=== PATIENT | female | born 1965 | race Two or more races ===

== ENCOUNTER → 2024-09-28 | Outpatient (CLI) | payer BC, SELFPAY ==
[2024-09-28 12:02] LABS: Basophils % (Auto) 1 % (0-2.5); Eosinophils # (Auto) 0.1 Thou/mm3 (0.0-0.5); Eosinophils % (Auto) 2 % (0-10); Hematocrit 37.8 % (36.0-46.0); Hemoglobin 12.7 g/dL (12.0-16.0); Immature Granulocytes % (Auto) 0 % (0-0); Immature Granulocytes Auto 0.02 Thou/mm3 (0.00-0.00); Lymphocytes % (Auto) 41 % (10-50); Mean Corpuscular HGB Conc 33.6 g/dl (31.0-37.0); Mean Corpuscular Hemoglobin 28.6 pg (25.0-35.0); Mean Corpuscular Volume 85 fL (80-100); Monocytes # (Auto) 0.3 Thou/mm3 (0.0-0.8); Monocytes % (Auto) 6 % (0-12); Neutrophils # (Auto) 2.5 Thou/mm3 (1.8-7.7); Neutrophils % (Auto) 50 % (37-80); Nucleated Red Blood Cell % 0 /100 WBC (0); Platelet Count 293 Thou/mm3 (140-440); RDW Standard Deviation 42.7 fL (36.4-46.3); Red Blood Count 4.44 Miln/mm3 (4.00-5.20)
[2024-09-28 12:13] LABS: Glucose Estimated Average 123 mg/dL (80-131); Hemoglobin A1C 5.9 % Hgb (4.8-6.0)
[2024-09-28 12:25] LABS: Vitamin B12 1082 pg/mL (211-911); Vitamin D 25 Hydroxy Total 40.5 ng/mL (7.3-40.2)
[2024-09-28 12:31] LABS: Alanine Aminotransferase 27 U/L (10-49); Albumin, Serum 4.7 gm/dL (3.5-5.0); Albumin/Globulin Ratio 1.9 (1.2-2.2); Alkaline Phosphatase 87 U/L (46-116); Anion Gap 7 (7-16); Aspartate Amino Transferase 19 U/L (0-34); BUN/Creatinine Ratio 21 Ratio (12-20); Bilirubin,Total 0.5 mg/dL (0.3-1.2); Blood Urea Nitrogen 17 mg/dL (9-23); Calcium 10.3 mg/dL (8.3-10.6); Calcium (Corrected) 10.3 mg/dL (8.5-10.1); Carbon Dioxide 29.8 mMol/L (20.0-31.0); Cardiac Risk Estimate 3.7 RATIO (3.7-5.6); Chloride 104 mMol/L (98-107); Cholesterol 190 mg/dL (132-200); Creatinine (Component) 0.8 mg/dL (0.6-1.3); Globulin 2.5 gm/dL (2.3-3.5); Glucose 110 mg/dL (74-106); HDL Cholesterol 51 mg/dL (40-60); LDL Cholesterol,Calculated 109 mg/dL (0-130); Osmolality,Calculated 283 (275-295); Potassium 4.8 mMol/L (3.4-5.1); Sodium 141 mMol/L (136-145); Thyroid Stimulating Hormone 1.63 uIU/mL (0.55-4.78); Total Protein 7.2 gm/dL (5.7-8.2); Triglycerides 150 mg/dL (30-150); Uric Acid 5.2 mg/dL (3.1-7.8); eGFR > 60 See Note
[2024-09-28 12:49] LABS: Collection Type, Urine Clean Catch
[2024-09-28 13:43] LABS: Bacteria,Urine 1+; Bilirubin,Urine Negative (Negative); Blood,Urine 3+ (Negative); Color,Urine Yellow (Lt Yel-Yel); Glucose, Urine Negative (Negative); Hyaline Casts,Urine < 1 /hpf (0-1); Ketones,Urine Negative (Negative); Leukocyte Esterase,Urine Positive (Negative); Nitrite,Urine Negative (Negative); PH,Urine 6.5 (5.0-7.0); Protein,Urine 1+ (Neg - Trace); RBC,Urine 199 /hpf (0-3); Specific Gravity,Urine 1.019 (1.001-1.035); Squamous Epithelial Cell,Urine 4 /hpf (0-5); Urobilinogen,Urine Negative mg/dL (0.0-1.0); WBC,Urine 192 /hpf (0-5)
[2024-09-28 14:01] LABS: Clarity,Urine Hazy (Clear/Hazy)
== END | disposition home or self-care (01) ==
LOC: COPL 11:26
PROVIDERS: PCP Internal Medicine; Referring Provider Internal Medicine; Visit Provider Internal Medicine
DX: Z00.00 Encounter for general adult medical examination without abnormal findings (principal); I10 Essential (primary) hypertension; E78.5 Hyperlipidemia, unspecified
CPT/HCPCS: 36415; 80053; 80061; 81001; 82306; 82607; 83036; 84443; 84550; 85025

== ENCOUNTER 2024-12-25 18:54 | Inpatient (IN) | payer BC, SELFPAY ==
[2024-12-25 19:31] VITALS: BP 129/69; PULSE 140; RESP 20; TEMP 40; O2SAT 97; BMI 38.4
--- NOTE | 2024-12-25 19:34 | PC.NURSE ---
sepsis alert called
--- NOTE | 2024-12-25 19:41 | XR_ITS ---
Examination: AP chest single view TECHNIQUE: AP portable upright chest single view Date and time: December 25, 20242032 hours Comparison September 28, 2022 INDICATIONS: Sepsis alert today with chest pain FINDINGS: Normal heart size Lungs are clear The osseous structures are demineralized IMPRESSION: No pneumonia or pulmonary edema
--- NOTE | 2024-12-25 19:41 | XR_ITS ---
Examination: CT abdomen with intravenous contrast CT pelvis with intravenous contrast 2-D coronal reconstructions 2-D sagittal reconstructions Date and time of exam:December 26, 1999 2510 0 1:00 PM INDICATIONS: Abdominal pain nausea vomiting diarrhea beginning 2 weeks ago with back pain. CTDI: vol (mGy) 14 DLP: (mGycm) 700 Technique: Multiple axial sections of the abdomen and pelvis have been obtained. 64 slice high-resolution scanner used. 3 mm axial sections have been obtained, post intravenous injection 60 cc [id number] 2-D sagittal, coronal reconstructions obtained. Low dose protocols were performed. One or more of the following dose reduction techniques were used; automated exposure control, adjustment of the mA and/or KV according to patient size, use of iterative reconstruction technique. Findings: No focal liver or splenic lesions Absent gallbladder No pancreatic or adrenal mass 1 to 2 mm bilateral renal calculi Mild wall thickening left ureter Aorta normal size No bowel obstruction Normal appendix No diverticulitis No bladder mass IMPRESSION: Tiny bilateral nonobstructing renal calculi Left pyelonephritis
--- NOTE | 2024-12-25 19:42 | EKG_ITS ---
[facility] Test Date: 2024-12-25 Pat Name: MADELINE ANDINO Department: Room: - Gender: Female [employer]: : 1965 Requested By: Rajat Rojas Order Number: [id number] Reading MD: Rajat Rojas Measurements Intervals [place] Rate: 123 P: 48 OH: 131 QRS: -16 QRSD: 100 T: 42 QT: 317 QTc: 454 Interpretive Statements SINUS TACHYCARDIA ABNORMAL RHYTHM ECG Compared to ECG 09/03/2022 17:54:08 Left-axis deviation no longer present Incomplete right bundle-branch block no longer present /store/S0/[id number].pdf
--- NOTE | 2024-12-25 19:55 | PD.EDNV ---
Nausea/Vomit./Diarrhea-RME/HPI General Chief complaint: Nausea/Vomiting/Diarrhea Stated complaint: abd. pain n/v/d, fever x2 wks, worse today Time Seen by Provider: 12/25/24 19:41 Arrival date/time: 12/25/24 18:54 59F with history of hysterectomy, cholecystectomy, HTN, HLD, and kidney stones presents to ED with 2 weeks of non-bloody diarrhea, N/V, and back/ab pain, and fevers/chills. Patient was seen at [facility] yesterday and diagnosed with UTI and discharged with Keflex. Patient states diarrhea has stopped, but there is still a lot of N/V. Limitations: no limitations Related Data Home Medications ?Medication ?Instructions ?Recorded ?Confirmed amlodipine 5 mg-benazepril 20 mg 1 cap PO DAILY 07/30/22 09/27/22 capsule baclofen 10 mg tablet 10 mg PO PRN PRN Pain 07/30/22 09/27/22 simvastatin 20 mg tablet 20 mg PO HS 07/30/22 09/27/22 omeprazole 40 mg capsule,delayed 40 mg PO QDAY 09/02/22 09/27/22 release Previous Rx's ?Medication ?Instructions ?Recorded ibuprofen 600 mg tablet 600 mg PO Q8H PRN pain #14 tabs 09/27/22 ondansetron 4 mg disintegrating 4 mg PO Q8H PRN nausea and 09/27/22 tablet vomiting #10 tabs Allergies Allergy/AdvReac Type Severity Reaction Status Date / Time hydrocodone Allergy Unknown DIFFICULTY Verified 12/25/24 19:00 BREATHING codeine Allergy Shortness Verified 12/25/24 19:00 of breath tamsulosin Allergy Shortness Verified 12/25/24 19:00 of breath Review of Systems Review of Systems Systems Reviewed: All systems reviewed, normal except as documented Constitutional Constitutional: Reports system reviewed and no additional complaints, except as documented, Denies fever(s) and Denies headache(s) ENT Ears, Nose, Mouth, and Throat: Denies disequilibrium and Denies headache(s) Cardiovascular Cardiovascular: Reports system reviewed and no additional complaints, except as documented, Denies chest pain and Denies dyspnea Respiratory Respiratory: Reports system reviewed and no additional complaints, except as documented, Denies cough and Denies dyspnea Gastrointestinal Gastrointestinal: Reports system reviewed and no additional complaints, except as documented, Reports as per HPI, Reports abdominal pain, Reports diarrhea, Reports nausea and Reports vomiting Musculoskeletal Musculoskeletal: Reports as per HPI and Reports back pain Neurologic Neurologic: Reports system reviewed and no additional complaints, except as documented, Denies confusion, Denies disequilibrium and Denies headache(s) Psychiatric Psychiatric: Denies confusion Past Medical History Past Medical History NEUROLOGIC: Negative Neurological Disorders or Seizures CARDIAC: Positive Cardiac Disorders (htn), Hypercholesterolemia and Hypertension; Negative Congestive Heart Failure RESPIRATORY: Negative Chronic Obstructive Pulmonary Disease (COPD) or Asthma GASTROINTESTINAL: Negative Gastrointestinal Disorders GENITOURINARY: Positive Genitourinary Disorders and Kidney Stones; Negative Renal Disease REPRODUCTIVE: Positive Previous Pregnancies; Negative Endometriosis or Pelvic Inflammatory Disease MUSCULOSKELETAL: Positive Musculoskeletal Disorders ENDOCRINE: Negative Endocrine Disorders, Diabetes Mellitus Type 1 or Diabetes Mellitus Type 2 HEMATOLOGIC: Negative Blood Disorders or Sickle Cell Disease OTHER HISTORY: Positive Hospitalization and Chicken Pox; Negative Blood Transfusions, Blood Transfusion Reaction, Anesthesia Reactions, Measles, Mumps or Cancer Family History FAMILY HISTORY: Positive Family Cardiac Disorders and Family Cancer; Negative Family Psychiatric Problems, Family Respiratory Disorders, Family Gastrointestinal Problems or Family Surgery Surgical History SURGICAL: Positive Hysterectomy; Negative Cardiac Surgery Social History SMOKING STATUS: Former smoker SECOND HAND EXPOSURE: No SUBSTANCE USE: does not use ED Exam General Limitations: Present no limitations General appearance: Present alert and in no apparent distress Head Head exam: Present atraumatic Eye Eye exam: Present normal appearance, PERRL and EOMI ENT ENT exam: Present normal exam, normal oropharynx and mucous membranes moist Neck Neck exam: Present normal inspection, full ROM and trachea midline Chest Chest inspection: Present normal inspection and symmetric chest wall rise Respiratory Respiratory exam: Present normal lung sounds bilaterally Cardiovascular Cardiovascular exam: Present regular rate, normal rhythm and normal heart sounds Abdominal Exam Abdominal exam: Present soft and normal bowel sounds Extremities Exam Extremities exam: Present normal inspection and full ROM Back Exam Back exam: Present full ROM and tenderness Neurological Exam Neurological exam: Present alert, oriented X3 and CN II-XII intact Psychiatric Psychiatric exam: Present normal affect and normal mood Skin Skin exam: Present warm, dry, intact and normal color Course Quality Measures none Orders Category Date Time Status Bedside COVID-19 Antigen Test NOW Care 12/25/24 19:08 Active Bedside Influenza A&B Antigen Test NOW Care 12/25/24 19:[address] Screening NOW Care 12/25/24 19:44 Active EKG (ED ONLY) *Do not use* NOW Care 12/25/24 19:42 Completed Insert IV NOW Care 12/25/24 19:[address] abdomen pelvis w con Stat Exams 12/25/24 19:41 Completed EKG (ED Only) Stat Exams 12/25/24 19:42 Draft XR chest 1V portable Stat Exams 12/25/24 19:41 Completed Blood Culture (Lab) Stat Lab 12/25/24 20:16 Received CBC Stat Lab 12/25/24 20:13 Completed Comprehensive Metabolic Panel Stat Lab 12/25/24 20:13 Completed Drug Screen,Urine Stat Lab 12/25/24 19:59 Completed Lactate (Lactic Acid) Stat Lab 12/25/24 20:00 Completed Lipase Stat Lab 12/25/24 20:13 Completed Magnesium Stat Lab 12/25/24 20:13 Completed Partial Thromboplastin Time Stat Lab 12/25/24 21:51 Completed Procalcitonin Stat Lab 12/25/24 20:13 Completed Prothrombin Time with INR Stat Lab 12/25/24 21:51 Completed Troponin I Stat Lab 12/25/24 20:13 Completed Urinalysis Stat Lab 12/25/24 19:59 Completed Urine Culture Stat Lab 12/25/24 19:59 Received Acetaminophen Tab [Tylenol ES Tab] Med 12/25/24 19:47 Discontinued 1,000 mg PO X1 ONE Ondansetron Inj [Zofran Inj] Med 12/25/24 19:41 Discontinued 4 mg IV X1 ONE Sodium Chloride 0.9% 1000 ml [Ns] 1,503 ml Med 12/25/24 19:41 Discontinued IV 1,503 mls/hr cefTRIAXone/D5w 1gm IV premix [Rocephin/D5w 1gm IV Med 12/25/24 19:44 Discontinued premix] 1 gm in 50 ml IV X1 fentaNYL INJ [Sublimaze Inj] Med 12/25/24 20:33 Discontinued 50 mcg IVP X1 ONE Vital Signs Vital signs: Vital Signs Temperature 104 F H 12/25/24 19:31 Pulse Rate 140 H 12/25/24 19:31 Respiratory Rate 20 12/25/24 19:31 Blood Pressure 129/69 12/25/24 19:31 Pulse Oximetry (%) 97 12/25/24 19:31 Oxygen Delivery Method Room Air 12/25/24 19:31 O2 at 97% on RA and WNLs Nausea/Vomiting/Diarrhea MDM Narrative MDM Narrative:: 59F with history of hysterectomy, cholecystectomy, HTN, HLD, and kidney stones presents to ED with 2 weeks of non-bloody diarrhea, N/V, and back/ab pain, and fevers/chills. Patient was seen at [facility] yesterday and diagnosed with UTI and discharged with Keflex. Patient states diarrhea has stopped, but there is still a lot of N/V. Physical exam reveals no ab tenderness. Some CVA tenderness. Patient is febrile and having some N/V. Sepsis alert called. CT L pyelo, which is supported with UA. No leukocytosis. CMP unremarkable. Lipase normal. Coags normal. EKG is sinus tach of 123. Normal trop and CXR. Normal procal. Minimal lactate elevation of 2.1. Upon reassessment, patient is feeling much better. Spoke to Dr. Vargas, who will admit patient. Patient data External records reviewed:: [facility] previous records Clinical information provided by:: patient Social determinants that could affect healthcare access:: none Patient has the following chronic illnesses:: hysterectomy, cholecystectomy, HTN, HLD, and kidney stones How is presenting disease/condition affected by chronic disease/condition?: exacerbated by Evaluation data The following diagnostics were reviewed and interpreted by me:: lab results, radiology exam(s) and EKG tracing(s) Lab and/or radiology exams considered but not ordered:: ordered Interpretation Summary: above Medications / Prescriptions Medications / Prescriptions considered but not ordered:: ordered Medication administrations:: Medication Administration History Acetaminophen (Acetaminophen 325 Mg Tablet) 650 mg PO Q6H PRN PRN Reason: Pain Stop: 01/24/25 22:53 Sodium Chloride (Ns 0.45%) 1,000 mls @ 120 mls/hr IV .Q8H20M [facility] Stop: 01/24/25 22:51 Last Admin: 12/25/24 23:30 Dose: 120 mls/hr Documented By: DT Piperacillin/Tazobactam/Dextrose (Zosyn) 3.375 gm in 50 mls @ 100 mls/hr IV Q6HR JULIANA Stop: 01/02/25 00:00 Piperacillin/Tazobactam/Dextrose (Zosyn) 3.375 gm in 50 mls @ 100 mls/hr IV X1 ONE Stop: 12/26/24 00:14 Last Admin: 12/25/24 23:54 Dose: 100 mls/hr Documented By: DT Discontinued Medications Acetaminophen (Acetaminophen 500 Mg Tablet) 1,000 mg PO X1 ONE Stop: 12/25/24 19:48 Last Admin: 12/25/24 20:24 Dose: 1,000 mg Documented By: DT Fentanyl Citrate (Fentanyl Cit Inj 50 Mcg/Ml Amp 2ml) 50 mcg IVP X1 ONE Stop: 12/25/24 20:34 Last Admin: 12/25/24 20:52 Dose: 50 mcg Documented By: DT Sodium Chloride (Ns) 1,503 mls @ 1,503 mls/hr 30 ml/kg infuse over 60 min (1503 ml) IV .Q1H ONE Stop: 12/25/24 20:40 Last Infusion: 12/25/24 21:40 Dose: Infused Documented By: Admin: 12/25/24 20:17 Dose: 1,503 mls/hr Documented By: DT Ceftriaxone Sodium/Dextrose (Rocephin/D5w 1gm Iv Premix) 1 gm in 50 mls @ 100 mls/hr IV X1 ONE Stop: 12/25/24 20:13 Last Infusion: 12/25/24 21:01 Dose: Infused Documented By: Admin: 12/25/24 20:20 Dose: 100 mls/hr Documented By: DT Piperacillin/Tazobactam/Dextrose (Zosyn) 3.375 gm in 50 mls @ 12.5 mls/hr IV X1 ONE Stop: 12/26/24 03:14 Last Admin: 12/25/24 23:52 Dose: Not Given Documented By: DT Non-Admin Reason: Duplicate Medication on eMAR Ondansetron HCl (Ondansetron Inj 2 Mg/Ml Inj 2 Ml) 4 mg IV X1 ONE; Protocol Stop: 12/25/24 19:42 Last Admin: 12/25/24 20:18 Dose: 4 mg Documented By: DT above Consultations Consultation(s) initiated? (list below): Yes Diagnosis Nausea Differential Diagnosis: traveler's diarrhea, food poisoning, gastroenteritis, clostridium difficile infection, drug-induced nausea and vomiting, dehydration and other (UTI/pyelo) Most likely diagnosis given after review of the tests above:: pyelo Admission Indicated Admission indicated?: indicated Admission Request Was there a request for admission?: Yes Admission Attestation Admission request attestation: Discussed case with [Dr. Vargas] from Hospitalist service regarding admission. Discussed patients ED course, exam findings, labs, and radiology results. The Hospitalist [agrees] to accept the patient for admission. Disposition Plan Disposition Plan: Admit Discharge Plan Plan Patient Disposition: Admit Acute Care w/in Hospital Problem List Clinical Impression: Acute pyelonephritis
[2024-12-25 20:08] LABS: Collection Type, Urine Clean Catch
[2024-12-25 20:14] LABS: Lactate (Lactic Acid) 2.1 mMol/L (0.4-2.0)
[2024-12-25] MEDS: SODIUM CHLORIDE 0.9% 1000 ML 1,503 ML 1503 ML IV (20:17)
[2024-12-25] MEDS: ONDANSETRON INJ 2 MG/ML INJ 2 ML 4 MG IV (20:18)
[2024-12-25] MEDS: cefTRIAXone/D5w 1gm IV premix 1 GM/50 ML BAG IV (20:20)
[2024-12-25 20:24] VITALS: TEMP 39.2
[2024-12-25] MEDS: ACETAMINOPHEN 500 MG TABLET 1000 MG PO (20:24)
[2024-12-25 20:30] LABS: Bilirubin,Urine Negative (Negative); Blood,Urine 2+ (Negative); Clarity,Urine Turbid (Clear/Hazy); Color,Urine Yellow (Lt Yel-Yel); Glucose, Urine Negative (Negative); Ketones,Urine Negative (Negative); Leukocyte Esterase,Urine Positive (Negative); Nitrite,Urine Negative (Negative); Protein,Urine 2+ (Neg - Trace); RBC,Urine 38 /hpf (0-3); Specific Gravity,Urine 1.018 (1.001-1.035); Squamous Epithelial Cell,Urine 5 /hpf (0-5); Urobilinogen,Urine Negative mg/dL (0.0-1.0); WBC,Urine 399 /hpf (0-5)
[2024-12-25 20:49] LABS: Basophils % (Auto) 0 % (0-2.5); Eosinophils # (Auto) 0.1 Thou/mm3 (0.0-0.5); Eosinophils % (Auto) 1 % (0-10); Hematocrit 34.8 % (36.0-46.0); Immature Granulocytes % (Auto) 1 % (0-0); Immature Granulocytes Auto 0.05 Thou/mm3 (0.00-0.00); Lymphocytes # (Auto) 0.9 Thou/mm3 (1.0-4.8); Lymphocytes % (Auto) 8 % (10-50); Mean Corpuscular HGB Conc 34.5 g/dl (31.0-37.0); Mean Corpuscular Hemoglobin 29.9 pg (25.0-35.0); Mean Corpuscular Volume 87 fL (80-100); Monocytes # (Auto) 0.9 Thou/mm3 (0.0-0.8); Monocytes % (Auto) 8 % (0-12); Neutrophils # (Auto) 9.1 Thou/mm3 (1.8-7.7); Neutrophils % (Auto) 82 % (37-80); Nucleated Red Blood Cell % 0 /100 WBC (0); Platelet Count 289 Thou/mm3 (140-440); RDW Standard Deviation 44.7 fL (36.4-46.3); Red Blood Count 4.02 Miln/mm3 (4.00-5.20)
[2024-12-25] MEDS: fentaNYL CIT INJ 50 mCg/ML AMP 2ML IVP (20:52)
[2024-12-25 21:00] VITALS: BP 135/64; PULSE 110; RESP 20; O2SAT 95
[2024-12-25 21:32] LABS: Alanine Aminotransferase 28 U/L (10-49); Albumin, Serum 4.6 gm/dL (3.5-5.0); Albumin/Globulin Ratio 1.6 (1.2-2.2); Alkaline Phosphatase 92 U/L (46-116); Anion Gap 13 (7-16); Aspartate Amino Transferase 28 U/L (0-34); BUN/Creatinine Ratio 15 Ratio (12-20); Bilirubin,Total 0.4 mg/dL (0.3-1.2); Blood Urea Nitrogen 12 mg/dL (9-23); Calcium 9.2 mg/dL (8.3-10.6); Calcium (Corrected) 9.2 mg/dL (8.5-10.1); Carbon Dioxide 24.7 mMol/L (20.0-31.0); Chloride 102 mMol/L (98-107); Creatinine (Component) 0.8 mg/dL (0.6-1.3); Estimated Creatinine Clearance 83.5 mL/min (>60); Globulin 2.8 gm/dL (2.3-3.5); Glucose 189 mg/dL (74-106); Lipase 40 U/L (12-53); Magnesium 1.6 mg/dL (1.6-2.6); Osmolality,Calculated 284 (275-295); Potassium 3.5 mMol/L (3.4-5.1); Procalcitonin 0.29 ng/ml (0.0-0.49); Sodium 140 mMol/L (136-145); Total Protein 7.4 gm/dL (5.7-8.2); Troponin I 0.022 ng/mL (0.0-0.045); eGFR > 60 See Note
[2024-12-25 21:36] VITALS: TEMP 37.1
[2024-12-25 22:14] LABS: INR 1.1 (0.9-1.3); Partial Thromboplastin Time 29.3 Seconds (22.0-36.0); Prothrombin Time 11.8 Seconds (9.0-12.2)
[2024-12-25 22:23] LABS: Amphetamine/Methamp Scrn,U Negative (Negative); Barbiturate Screen,Urine Negative (Negative); Benzodiazepines Screen,Urine Negative (Negative); Benzoylecgonine Screen, Ur Negative (Negative); Fentanyl Screen,Urine Negative (Negative); Opiate Screen,Urine Negative (Negative); THC Screen,Urine Negative (Negative)
[2024-12-25 22:43] VITALS: BP 134/71; PULSE 96; RESP 19; TEMP 37.3; O2SAT 96
[2024-12-25 23:03] LABS: Reflex Lactate? Y
[2024-12-25 23:28] LABS: Lactic Acid, 3 HR 0.7 mMol/L (0.4-2.0)
[2024-12-25] MEDS: SODIUM CHLORIDE 0.45 % 1,000 ML 120 ML IV (23:30)
[2024-12-25] MEDS: PIPER/TAZO 3.375 GM PREMIX 3.375 GM/50 ML BAG IV (23:54)
[2024-12-26] VITALS (11 sets, daily range): BP systolic 107–145; BP diastolic 60–81; PULSE 70–90; RESP 15–21; TEMP 36.2–38.6; O2SAT 92–99; BMI 38.4
[2024-12-26] MEDS: KETOROLAC INJ 30 MG/ML VIAL IVP (01:38)
[2024-12-26] MEDS: PIPER/TAZO 3.375 GM PREMIX 3.375 GM/50 ML BAG IV ×3 (05:22→17:37)
[2024-12-26] MEDS: ACETAMINOPHEN 325 MG TABLET 650 MG PO ×3 (05:25→20:17)
[2024-12-26] MEDS: SODIUM CHLORIDE 0.45 % 1,000 ML 120 ML IV ×2 (07:13→16:43)
--- NOTE | 2024-12-26 09:40 | PD.RESHP ---
Documentation for date of: 12/26/24 HPI History of Present Illness Chief complaint: Fever, dysuria History of present illness: 59 y/o F with history of HTN, HLD, and kidney stones presents to ED with 2 weeks of non-bloody diarrhea, N/V, and back/abd pain, and fevers/chills. Patient was diagnosed with UTI start Keflex yesterday, but symptoms remain prompting ED visit. Patient reports diarrhea has resolved, however nausea and vomiting, dysuria, fever and chills are present. Patient denies chest pain or shortness of breath. ED COURSE: Labs significant for: Lactic acid 2.1 down to 0.7. Pro-Chidi negative. Urinalysis showed 40 WBC, 38 RBC, 2+ protein, no bacteria. Imaging significant for: CT abdomen/pelvis showing left-sided pyelonephritis. Patient started on Zosyn. Given 2.5 L IV bolus. Patient seen and examined at bedside, resting comfortably. Patient reports significant improvement in symptoms with IV Zosyn. Continue IV antibiotics, probable discharge tomorrow. Review of Systems Review of Systems Systems Reviewed: All systems reviewed, normal except as documented Exam Vital Signs Temp Pulse Resp BP Pulse Ox O2 Del Method 97.1 F 70 16 112/65 97 Room Air 12/26/24 08:00 12/26/24 08:00 12/26/24 08:00 12/26/24 08:00 12/26/24 08:00 12/26/24 08:00 Narrative Exam PE: Gen: Well-developed and well-nourished. HEENT: NCAT, PERRLA, EOMI, MMM, anicteric conjunctivae. CVS: normal S1 and S2. RRR. No M/R/G. Resp: CTA B/L. No rhonchi, rales, crackles or wheezing. Abd: soft, non-tender, non-distended. MSK: Good ROM in BUE & BLE. No edema or rash. Neuro: CN II-XII grossly intact. Strength 5/5 in BUE & BLE. Alert and oriented x3. Psych: appropriate mood and affect. Results: Labs 12/25/24 20:13 12/25/24 20:13 Labs: Short CBC 12/25/24 Range/Units 20:13 WBC 11.0 (3.6-11.0) Thou/mm3 Hgb 12.0 (12.0-16.0) g/dL Hct 34.8 L (36.0-46.0) % Plt Count 289 (140-440) Thou/mm3 BMP 12/25/24 20:13 Sodium 140 Potassium 3.5 Chloride 102 Carbon Dioxide 24.7 BUN 12 Creatinine 0.8 Glucose 189 H Calcium 9.2 Cardiac Enzymes 12/25/24 Range/Units 20:13 Troponin I 0.022 (0.0-0.045) ng/mL Liver Function 12/25/24 Range/Units 20:13 Total Bilirubin 0.4 (0.3-1.2) mg/dL AST 28 (0-34) U/L ALT 28 (10-49) U/L Alkaline Phosphatase 92 (46-116) U/L Albumin 4.6 (3.5-5.0) gm/dL Urine 12/25/24 Range/Units 19:59 Urine Color Yellow (Lt Yel-Yel) Urine Clarity Turbid A (Clear/Hazy) Urine pH 6.0 (5.0-7.0) Ur Specific [place] 1.018 (1.001-1.035) Urine Protein 2+ A (Neg - Trace) Urine Glucose (UA) Negative (Negative) Quality Measures Quality Measures VTE prophylaxis Medications Home Medications and Allergies Home Medications ?Medication ?Instructions ?Recorded ?Confirmed ?Type amlodipine 5 mg-benazepril 20 mg 1 cap PO DAILY 07/30/22 12/26/24 History capsule baclofen 10 mg tablet 10 mg PO PRN PRN Pain 07/30/22 12/26/24 History simvastatin 20 mg tablet 20 mg PO HS 07/30/22 12/26/24 History omeprazole 40 mg capsule,delayed 40 mg PO QDAY 09/02/22 12/26/24 History release Allergies Allergy/AdvReac Type Severity Reaction Status Date / Time hydrocodone Allergy Unknown DIFFICULTY Verified 12/25/24 19:00 BREATHING codeine Allergy Shortness Verified 12/25/24 19:00 of breath tamsulosin Allergy Shortness Verified 12/25/24 19:00 of breath Visit Medications Acetaminophen (Acetaminophen 325 Mg Tablet) 650 mg PO Q6H PRN PRN Reason: Pain Stop: 01/24/25 22:53 Last Admin: 12/26/24 05:25 Dose: 650 mg Sodium Chloride (Ns 0.45%) 1,000 mls @ 120 mls/hr IV .Q8H20M JULIANA Stop: 01/24/25 22:51 Last Admin: 12/26/24 07:13 Dose: 120 mls/hr Piperacillin/Tazobactam/Dextrose (Zosyn) 3.375 gm in 50 mls @ 12.5 mls/hr IV Q6HR JULIANA Stop: 01/02/25 05:59 Last Admin: 12/26/24 05:22 Dose: 12.5 mls/hr Discontinued Medications Acetaminophen (Acetaminophen 500 Mg Tablet) 1,000 mg PO X1 ONE Stop: 12/25/24 19:48 Last Admin: 12/25/24 20:24 Dose: 1,000 mg Fentanyl Citrate (Fentanyl Cit Inj 50 Mcg/Ml Amp 2ml) 50 mcg IVP X1 ONE Stop: 12/25/24 20:34 Last Admin: 12/25/24 20:52 Dose: 50 mcg Sodium Chloride (Ns) 1,503 mls @ 1,503 mls/hr 30 ml/kg infuse over 60 min (1503 ml) IV .Q1H ONE Stop: 12/25/24 20:40 Last Infusion: 12/25/24 21:40 Dose: Infused Ceftriaxone Sodium/Dextrose (Rocephin/D5w 1gm Iv Premix) 1 gm in 50 mls @ 100 mls/hr IV X1 ONE Stop: 12/25/24 20:13 Last Infusion: 12/25/24 21:01 Dose: Infused Piperacillin/Tazobactam/Dextrose (Zosyn) 3.375 gm in 50 mls @ 12.5 mls/hr IV X1 ONE Stop: 12/26/24 03:14 Last Admin: 12/25/24 23:52 Dose: Not Given Piperacillin/Tazobactam/Dextrose (Zosyn) 3.375 gm in 50 mls @ 100 mls/hr IV X1 ONE Stop: 12/26/24 00:14 Last Infusion: 12/26/24 00:31 Dose: Infused Ketorolac Tromethamine (Ketorolac Inj 30 Mg/Ml Vial) 30 mg IVP X1 ONE Stop: 12/26/24 01:31 Last Admin: 12/26/24 01:38 Dose: 30 mg Ondansetron HCl (Ondansetron Inj 2 Mg/Ml Inj 2 Ml) 4 mg IV X1 ONE; Protocol Stop: 12/25/24 19:42 Last Admin: 12/25/24 20:18 Dose: 4 mg Assessment & Plan Plan 59 y/o F with history of HTN, HLD, and kidney stones presents to ED with 2 weeks of non-bloody diarrhea, N/V, and back/abd pain, and fevers/chills, negative for pyelonephritis. #Pyelonephritis Patient presented with complaint of fever, chills, nausea, vomiting, CVA tenderness noted on initial exam. Plan nephritis confirmed with CT imaging. Patient started on Zosyn, received 2.5 L bolus in the ED. Patient with significant symptomatic improvement since admission. Lactic acid 2.1 down to 0.7, Pro-Chidi negative, WBC 11. Afebrile. - Zosyn 3.375 g IV every 6 hours - Normal saline 120 mL/h - Blood and urine cultures pending, follow-up #HTN #HLD Patient has history as stated. - Resume home medication: Amlodipine?benazepril DVT prophylaxis: Heparin GI prophylaxis: None Diet: Regular Lines: Peripheral IV Code status: Full code Plan of care discussed with attending Dr. Vargas. José Miguel Reynoso MD PGY?1 Attending Provider Attestation/Addendum Patient seen and examined with resident physician Dr. Hernandez. Note reviewed, agree with findings and recommendations. Patient currently seen in medical floor. Daughter Carolina at bedside. Admitted with complicated UTI/left pyelonephritis. Having chills. Continue with broad-spectrum antibiotics, fluids. Complaining of bodyaches-morphine given. Patient allergic to [place], codeine.
--- NOTE | 2024-12-26 10:51 | PC.SS ---
Follow up note: Pt is receiving IV hydration and IV antibiotic. Pt will return home upon dc.
--- NOTE | 2024-12-26 11:43 | PC.SS ---
SS met with patient regarding her d/c plan. Pt is alert/oriented. Pt was admitted for Fever/TAchycardia R.O Sepsis Secondary to UTI. Pt confirmed demographic and contact information is correct on facesheet. Pt resides with and dtr. Pt ambulates independently without assistance or DME. Pt is ok with all ADLs. 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 Patient?s pharmacy of choice is [facility] [address]. Pt named her her dtr, Carolina Melgar medical decision maker if she is unable. Patient?s choice is to return home upon d/c. Pt does not have an advance directive, SS offered, and pt was receptive. Pt states she is not diabetic and is not on dialysis. Pt states she had phone visit with PCP Tuesday. Pt states her daugter will provide transportation home. D/C plan: Return home Next of Kin: Carolina Rajinder Melgar, daughter, phone# [phone] PCP: Dr. Vargas Address: Correct on facesheet
[2024-12-26] MEDS: ONDANSETRON INJ 2 MG/ML INJ 2 ML 4 MG IV (16:16)
[2024-12-26] MEDS: MORPHINE SULF INJ 10 MG/ML VIAL IVP ×2 (16:17→21:31)
[2024-12-26] MEDS: IBUPROFEN TAB 200 MG TABLET 500 MG PO (16:36)
[2024-12-26] MEDS: DOCUSATE SOD 100 MG CAPSULE PO (17:37)
[2024-12-26] MEDS: AMLODIPINE-BENAZEPRIL 5-20 MG PO (17:37)
[2024-12-26] MEDS: HEPARIN SOD INJ 5000 UNIT/ML VIAL SC (20:22)
[2024-12-27] VITALS (11 sets, daily range): BP systolic 107–142; BP diastolic 61–87; PULSE 65–95; RESP 15–20; TEMP 36.3–38.6; O2SAT 93–97; BMI 39.0
[2024-12-27] MEDS: PIPER/TAZO 3.375 GM PREMIX 3.375 GM/50 ML BAG IV ×4 (00:08→17:24)
[2024-12-27] MEDS: SODIUM CHLORIDE 0.45 % 1,000 ML 120 ML IV ×3 (00:17→22:20)
[2024-12-27] MEDS: ACETAMINOPHEN 325 MG TABLET 650 MG PO ×4 (02:25→22:38)
[2024-12-27] MEDS: ONDANSETRON INJ 2 MG/ML INJ 2 ML 4 MG IV ×3 (02:25→17:05)
[2024-12-27] MEDS: MORPHINE SULF INJ 10 MG/ML VIAL IVP ×3 (03:39→17:23)
[2024-12-27 05:53] LABS: Basophils % (Auto) 1 % (0-2.5); Eosinophils # (Auto) 0.1 Thou/mm3 (0.0-0.5); Eosinophils % (Auto) 1 % (0-10); Hematocrit 33.1 % (36.0-46.0); Hemoglobin 10.8 g/dL (12.0-16.0); Immature Granulocytes % (Auto) 0 % (0-0); Immature Granulocytes Auto 0.02 Thou/mm3 (0.00-0.00); Lymphocytes # (Auto) 1.2 Thou/mm3 (1.0-4.8); Lymphocytes % (Auto) 23 % (10-50); Mean Corpuscular HGB Conc 32.6 g/dl (31.0-37.0); Mean Corpuscular Hemoglobin 28.3 pg (25.0-35.0); Mean Corpuscular Volume 87 fL (80-100); Monocytes # (Auto) 0.7 Thou/mm3 (0.0-0.8); Monocytes % (Auto) 12 % (0-12); Neutrophils # (Auto) 3.3 Thou/mm3 (1.8-7.7); Neutrophils % (Auto) 62 % (37-80); Nucleated Red Blood Cell % 0 /100 WBC (0); Platelet Count 210 Thou/mm3 (140-440); Red Blood Count 3.81 Miln/mm3 (4.00-5.20); White Blood Count 5.3 Thou/mm3 (3.6-11.0)
[2024-12-27 06:26] LABS: Alanine Aminotransferase 42 U/L (10-49); Albumin, Serum 4.1 gm/dL (3.5-5.0); Albumin/Globulin Ratio 1.6 (1.2-2.2); Alkaline Phosphatase 85 U/L (46-116); Anion Gap 12 (7-16); Aspartate Amino Transferase 42 U/L (0-34); BUN/Creatinine Ratio 10 Ratio (12-20); Bilirubin,Total 0.5 mg/dL (0.3-1.2); Blood Urea Nitrogen 6 mg/dL (9-23); Calcium 8.8 mg/dL (8.3-10.6); Calcium (Corrected) 8.8 mg/dL (8.5-10.1); Carbon Dioxide 25.1 mMol/L (20.0-31.0); Chloride 103 mMol/L (98-107); Creatinine (Component) 0.6 mg/dL (0.6-1.3); Globulin 2.5 gm/dL (2.3-3.5); Glucose 106 mg/dL (74-106); Magnesium 1.7 mg/dL (1.6-2.6); Osmolality,Calculated 277 (275-295); Phosphorous 2.8 mg/dL (2.4-5.1); Potassium 3.4 mMol/L (3.4-5.1); Sodium 140 mMol/L (136-145); Total Protein 6.6 gm/dL (5.7-8.2); eGFR > 60 See Note
[2024-12-27] MEDS: AMLODIPINE-BENAZEPRIL 5-20 MG PO (08:02)
[2024-12-27] MEDS: HEPARIN SOD INJ 5000 UNIT/ML VIAL SC ×2 (08:02→22:11)
[2024-12-27] MEDS: MAGNESIUM CITRATE 300 ML BTL PO (09:30)
[2024-12-27] MEDS: SUMAtriptan 25 MG TABLET PO (09:30)
[2024-12-27] MEDS: CYCLObenzaPRINE 5 MG TABLET PO ×2 (09:39→22:12)
[2024-12-27] MEDS: POTASSIUM CHLORIDE 20 mEq TABCR 40 MEQ PO (09:41)
--- NOTE | 2024-12-27 09:46 | ESPR_ITS ---
Documentation for date of: 12/27/24 Subjective Subjective Interval history: 59 y/o F with history of HTN, HLD, and kidney stones presents to ED with 2 weeks of non-bloody diarrhea, N/V, and back/abd pain, and fevers/chills. Patient was diagnosed with UTI start Keflex yesterday, but symptoms remain prompting ED visit. Patient reports diarrhea has resolved, however nausea and vomiting, dysuria, fever and chills are present. Patient denies chest pain or shortness of breath. ED COURSE: Labs significant for: Lactic acid 2.1 down to 0.7. Pro-Chidi negative. Urinalysis showed 40 WBC, 38 RBC, 2+ protein, no bacteria. Imaging significant for: CT abdomen/pelvis showing left-sided pyelonephritis. Patient started on Zosyn. Given 2.5 L IV bolus. Patient seen and examined at bedside, resting comfortably. Patient reports significant improvement in symptoms with IV Zosyn. 12/27/2024: Patient seen examined at bedside, notably uncomfortable. Patient complains of fevers overnight and significant headache. Patient is also having difficult bowel movements despite stool softeners. WBC 5.3, hemoglobin 10.8, sodium 140, potassium 3.4, bicarb 25.1, BUN 6, creatinine 0.6, EGFR greater than 60. Albumin decreased from 4.6-4.1. Ordered replacement potassium, started Flexeril for back pain and headaches, give times of magnesium citrate, and x 1 Imitrex. Will continue IV antibiotics. Urine culture positive for gram- negative rods, blood cultures negative x 24 hours. Exam Vital Signs Temp Pulse Resp BP Pulse Ox O2 Del Method 99.7 F 86 18 111/75 93 L Room Air 12/27/24 09:39 12/27/24 08:00 12/27/24 08:00 12/27/24 08:00 12/27/24 08:00 12/27/24 08:00 Narrative Exam PE: Gen: Well-developed and well-nourished. Moderate distress. HEENT: NCAT, PERRLA, EOMI, MMM, anicteric conjunctivae. CVS: normal S1 and S2. RRR. No M/R/G. Resp: CTA B/L. No rhonchi, rales, crackles or wheezing. Abd: soft, non-tender, non-distended. MSK: Good ROM in BUE & BLE. No edema or rash. Neuro: CN II-XII grossly intact. Strength 5/5 in BUE & BLE. Alert and oriented x3. Psych: appropriate mood and affect. Objective Labs 12/29/24 04:44 12/29/24 04:44 Labs: Laboratory Results - last 24 hr 12/27/24 05:09 WBC 5.3 D RBC 3.81 L Hgb 10.8 L Hct 33.1 L MCV 87 MCH 28.3 MCHC 32.6 RDW Std Deviation 45.0 Plt Count 210 D Neut % (Auto) 62 Lymph % (Auto) 23 [place] % (Auto) 12 Eos % (Auto) 1 Baso % (Auto) 1 Neut # (Auto) 3.3 Lymph # (Auto) 1.2 [place] # (Auto) 0.7 Eos # (Auto) 0.1 Baso # (Auto) 0.0 Immature Gran # (Auto) 0.02 H Absolute Nucleated RBC 0.00 Immature Gran % 0 Nucleated RBC % 0 Sodium 140 Potassium 3.4 Chloride 103 Carbon Dioxide 25.1 Anion Gap 12 BUN 6 L Creatinine 0.6 Estim Creat Clear Calc 112.0 eGFR > 60 BUN/Creatinine Ratio 10 L Glucose 106 D Calculated Osmolality 277 Calcium 8.8 Corrected Calcium 8.8 Phosphorus 2.8 Magnesium 1.7 Total Bilirubin 0.5 AST 42 H ALT 42 Alkaline Phosphatase 85 Total Protein 6.6 Albumin 4.1 D Globulin 2.5 Albumin/Globulin Ratio 1.6 Quality Measures Quality Measures VTE prophylaxis Assessment & Plan Assessment Current Active Medications: Generic Name Dose Route Start Last Admin Trade Name Viji PRN Reason Stop Dose Admin Acetaminophen 650 mg 12/25/24 22:54 12/27/24 09:39 Acetaminophen 325 Mg Tablet PO 01/24/25 22:53 650 mg Q6H PRN Administration Pain Amlodipine- 0 ea 12/26/24 16:45 12/27/24 08:02 Benazepril 5-20 Mg PO 01/25/25 16:44 1 capsule QDAY JULIANA Administration Cyclobenzaprine HCl 5 mg 12/27/24 09:00 12/27/24 09:39 Cyclobenzaprine 5 Mg Tablet PO 01/26/25 08:59 5 mg BID JULIANA Administration Docusate Sodium 100 mg 12/26/24 17:25 12/26/24 17:37 Docusate Sod 100 Mg Capsule PO 01/25/25 17:24 100 mg BID PRN Administration CONSTIPATION Protocol Heparin Sodium (Porcine) 5,000 unit 12/26/24 21:00 12/27/24 08:02 Heparin Sod Inj 5000 Unit/Ml Vial SC 01/09/25 20:59 5,000 unit Q12HR JULIANA Administration Piperacillin/Tazobactam/Dextrose 3.375 gm in 50 mls @ 12.5 mls/hr 12/26/24 06:00 12/27/24 05:49 Zosyn IV 01/02/25 05:59 12.5 mls/hr Q6HR JULIANA Administration Morphine Sulfate 1 mg 12/26/24 15:47 12/27/24 07:59 Morphine Sulf Inj 10 Mg/Ml Vial IVP 12/31/24 15:46 1 mg Q4HR PRN Administration PAIN 4-6 Ondansetron HCl 4 mg 12/26/24 16:09 12/27/24 08:02 Ondansetron Inj 2 Mg/Ml Inj 2 Ml IV 01/25/25 16:08 4 mg Q6HR PRN Administration NAUSEA OR VOMITING Protocol Plan 59 y/o F with history of HTN, HLD, and kidney stones presents to ED with 2 weeks of non-bloody diarrhea, N/V, and back/abd pain, and fevers/chills, negative for pyelonephritis. #Pyelonephritis Patient presented with complaint of fever, chills, nausea, vomiting, CVA tenderness noted on initial exam. Plan nephritis confirmed with CT imaging. Patient started on Zosyn, received 2.5 L bolus in the ED. Patient with significant symptomatic improvement since admission. Lactic acid 2.1 down to 0.7, Pro-Chidi negative, WBC 11. Patient complaining of fevers overnight along with chills, body aches, headaches. Morphine was given for body aches, some improvement. Urine culture positive for gram-negative rods, pending speciation. Blood cultures negative x 24 hours. - Zosyn 3.375 g IV every 6 hours - Normal saline 120 mL/h - Follow-up blood and urine culture final results - Morphine 1 mg IV every 4 hours as needed - Flexeril 5 mg twice daily - Imitrex x 1 #HTN #HLD Patient has history as stated. - Resume home medication: Amlodipine?benazepril DVT prophylaxis: Heparin GI prophylaxis: None Diet: Regular Lines: Peripheral IV Code status: Full code Plan of care discussed with attending Dr. Vargas. José Miguel Reynoso MD PGY?1 Attending Provider Attestation/Addendum Patient seen and examined with resident physician Dr. Hernandez. Note reviewed, agree with findings and recommendations. Pending cultures-currently on Zosyn. This morning she had low-grade fever.
[2024-12-28] VITALS (9 sets, daily range): BP systolic 106–152; BP diastolic 63–79; PULSE 68–87; RESP 14–21; TEMP 36.2–37.5; O2SAT 93–94; BMI 39.4
[2024-12-28] MEDS: PIPER/TAZO 3.375 GM PREMIX 3.375 GM/50 ML BAG IV ×5 (00:31→23:47)
[2024-12-28] MEDS: ACETAMINOPHEN 325 MG TABLET 650 MG PO ×2 (04:53→16:02)
[2024-12-28 06:02] LABS: Basophils % (Auto) 1 % (0-2.5); Eosinophils # (Auto) 0.1 Thou/mm3 (0.0-0.5); Eosinophils % (Auto) 1 % (0-10); Hematocrit 32.8 % (36.0-46.0); Hemoglobin 10.9 g/dL (12.0-16.0); Immature Granulocytes % (Auto) 0 % (0-0); Immature Granulocytes Auto 0.02 Thou/mm3 (0.00-0.00); Lymphocytes # (Auto) 1.6 Thou/mm3 (1.0-4.8); Lymphocytes % (Auto) 34 % (10-50); Mean Corpuscular HGB Conc 33.2 g/dl (31.0-37.0); Mean Corpuscular Hemoglobin 28.5 pg (25.0-35.0); Mean Corpuscular Volume 86 fL (80-100); Monocytes # (Auto) 0.6 Thou/mm3 (0.0-0.8); Monocytes % (Auto) 12 % (0-12); Neutrophils # (Auto) 2.3 Thou/mm3 (1.8-7.7); Neutrophils % (Auto) 52 % (37-80); Nucleated Red Blood Cell % 0 /100 WBC (0); Platelet Count 234 Thou/mm3 (140-440); Red Blood Count 3.83 Miln/mm3 (4.00-5.20); White Blood Count 4.5 Thou/mm3 (3.6-11.0)
[2024-12-28 06:36] LABS: Alanine Aminotransferase 78 U/L (10-49); Albumin, Serum 4.2 gm/dL (3.5-5.0); Albumin/Globulin Ratio 1.6 (1.2-2.2); Alkaline Phosphatase 124 U/L (46-116); Anion Gap 13 (7-16); Aspartate Amino Transferase 68 U/L (0-34); BUN/Creatinine Ratio 12 Ratio (12-20); Bilirubin,Total 0.6 mg/dL (0.3-1.2); Blood Urea Nitrogen 7 mg/dL (9-23); Calcium 8.9 mg/dL (8.3-10.6); Calcium (Corrected) 8.9 mg/dL (8.5-10.1); Carbon Dioxide 26.2 mMol/L (20.0-31.0); Chloride 105 mMol/L (98-107); Creatinine (Component) 0.6 mg/dL (0.6-1.3); Estimated Creatinine Clearance 110.2 mL/min (>60); Globulin 2.6 gm/dL (2.3-3.5); Glucose 94 mg/dL (74-106); Magnesium 1.9 mg/dL (1.6-2.6); Osmolality,Calculated 284 (275-295); Phosphorous 3.4 mg/dL (2.4-5.1); Potassium 3.6 mMol/L (3.4-5.1); Sodium 144 mMol/L (136-145); Total Protein 6.8 gm/dL (5.7-8.2); eGFR > 60 See Note
[2024-12-28] MEDS: SODIUM CHLORIDE 0.45 % 1,000 ML 120 ML IV ×2 (07:51→17:04)
[2024-12-28] MEDS: AMLODIPINE-BENAZEPRIL 5-20 MG PO (08:23)
[2024-12-28] MEDS: HEPARIN SOD INJ 5000 UNIT/ML VIAL SC ×2 (08:24→20:36)
--- NOTE | 2024-12-28 11:45 | ESPR_ITS ---
Documentation for date of: 12/28/24 Subjective Subjective Interval history: Ms. Moncada is a 59 y/o F with history of HTN, HLD, and kidney stones presents to ED with 2 weeks of non-bloody diarrhea, N/V, and back/abd pain, and fevers/chills. Patient was diagnosed with UTI start Keflex yesterday, but symptoms remain prompting ED visit. Patient reports diarrhea has resolved, however nausea and vomiting, dysuria, fever and chills are present. Patient denies chest pain or shortness of breath. ED COURSE: Labs significant for: Lactic acid 2.1 down to 0.7. Pro-Chidi negative. Urinalysis showed 40 WBC, 38 RBC, 2+ protein, no bacteria. Imaging significant for: CT abdomen/pelvis showing left-sided pyelonephritis. Patient started on Zosyn. Given 2.5 L IV bolus. Patient seen and examined at bedside, resting comfortably. Patient reports significant improvement in symptoms with IV Zosyn. 12/27/2024: Patient seen examined at bedside, notably uncomfortable. Patient complains of fevers overnight and significant headache. Patient is also having difficult bowel movements despite stool softeners. WBC 5.3, hemoglobin 10.8, sodium 140, potassium 3.4, bicarb 25.1, BUN 6, creatinine 0.6, EGFR greater than 60. Albumin decreased from 4.6-4.1. Ordered replacement potassium, started Flexeril for back pain and headaches, give times of magnesium citrate, and x 1 Imitrex. Will continue IV antibiotics. Urine culture positive for gram- negative rods, blood cultures negative x 24 hours. 12/28/2024 patient currently seen in medical floor. Daughter at bedside. Complaining of headaches. Yesterday I gave her cyclobenzaprine and Imitrex and the headaches much better. Reduced amount of morphine given. Patient has ESBL E. coli in the urine cultures. Blood cultures negative. Dr. Suero was consulted. Sensitive to Zosyn-currently on. Review of Systems Review of Systems Narrative Review of Systems: CONSTITUTIONAL: Fever seems to be better HEENT: Denies any visual disturbances or hearing problems. CARDIOVASCULAR: Patient denies any chest pain, shortness of breath, swelling in the lower extremities. PULMONARY: Patient denies any shortness of breath, cough. GASTROINTESTINAL: Patient denies any abdominal pain, constipation, nausea, vomiting, diarrhea. GENITOURINARY: Patient denies any urinary symptoms of burning or frequency or hematuria, denies any form in the urine. SKIN: Denies any rash. MUSCULOSKELETAL: Denies any muscular skeletal problems of joint pains. NEUROLOGICAL: Denies any neurological problems of strokes, seizures or confusion. Denies any memory problems. Headaches better PSYCHIATRIC: Denies any depression or anxiety. LYMPHATICS : No lymphadenopathy Exam Vital Signs Temp Pulse Resp BP Pulse Ox O2 Del Method 36.7 C 74 17 124/63 94 L Room Air 12/28/24 08:00 12/28/24 08:00 12/28/24 08:00 12/28/24 08:00 12/28/24 08:00 12/28/24 08:00 Narrative Exam GENERAL APPEARANCE: Patient seems to be comfortable, adequately hydrated and nourished. HEENT: EOMI, PERRLA NECK: Neck supple, no JVD or bruit CARDIOVASCULAR: Heart regular, no murmurs LUNGS/CHEST: Chest clear to auscultation. No rales, rhonchi, wheezing ABDOMEN: Soft, nontender, nondistended. No masses. Normal bowel sounds. EXTREMITIES: No edema, clubbing or cyanosis. SKIN: Skin exam normal without any rashes MUSCULOSKELETAL: Musculoskeletal exam normal PSYCHIATRIC: Normal mood, affect LYMPHATICS: No lymphadenopathy noted NEUROLOGICAL : No neurological deficits Objective Labs 12/29/24 04:44 12/29/24 04:44 Labs: Laboratory Results - last 24 hr 12/28/24 04:45 WBC 4.5 RBC 3.83 L Hgb 10.9 L Hct 32.8 L MCV 86 MCH 28.5 MCHC 33.2 RDW Std Deviation 43.0 Plt Count 234 Neut % (Auto) 52 Lymph % (Auto) 34 [place] % (Auto) 12 Eos % (Auto) 1 Baso % (Auto) 1 Neut # (Auto) 2.3 Lymph # (Auto) 1.6 [place] # (Auto) 0.6 Eos # (Auto) 0.1 Baso # (Auto) 0.0 Immature Gran # (Auto) 0.02 H Absolute Nucleated RBC 0.00 Immature Gran % 0 Nucleated RBC % 0 Sodium 144 Potassium 3.6 Chloride 105 Carbon Dioxide 26.2 Anion Gap 13 BUN 7 L Creatinine 0.6 Estim Creat Clear Calc 110.2 eGFR > 60 BUN/Creatinine Ratio 12 Glucose 94 Calculated Osmolality 284 Calcium 8.9 Corrected Calcium 8.9 Phosphorus 3.4 Magnesium 1.9 Total Bilirubin 0.6 AST 68 H ALT 78 H Alkaline Phosphatase 124 H D Total Protein 6.8 Albumin 4.2 Globulin 2.6 Albumin/Globulin Ratio 1.6 Assessment & Plan Additional Assessment & Plan Additional Plan: 59 y/o F with history of HTN, HLD, and kidney stones presents to ED with 2 weeks of non-bloody diarrhea, N/V, and back/abd pain, and fevers/chills, negative for pyelonephritis. #Pyelonephritis Patient presented with complaint of fever, chills, nausea, vomiting, CVA tenderness noted on initial exam. Plan nephritis confirmed with CT imaging. Patient started on Zosyn, received 2.5 L bolus in the ED. Patient with significant symptomatic improvement since admission. Lactic acid 2.1 down to 0.7, Pro-Chidi negative, WBC 11. Patient complaining of fevers overnight along with chills, body aches, headaches. Morphine was given for body aches, some improvement. Urine culture positive for gram-negative rods, pending speciation. Blood cultures negative x 24 hours. - Zosyn 3.375 g IV every 6 hours - dc Normal saline 120 mL/h - Blood cultures negative, urine cultures positive for ESBL - Morphine 1 mg IV every 4 hours as needed - Flexeril 5 mg twice daily - Dr. Suero was consulted # Elevated LFTs most likely related to antibiotics. CT abdomen on admission was negative. Will monitor closely. #HTN #HLD Patient has history as stated. - Resume home medication: Amlodipine?benazepril DVT prophylaxis: Heparin GI prophylaxis: None Diet: Regular Lines: Peripheral IV Code status: Full code Quality - progress note Quality Measures Quality Measures: VTE prophylaxis Reason for Continued Stay Reason for Continued Stay: further monitoring
--- NOTE | 2024-12-28 11:47 | PC.SS ---
Follow up note: Pt will require 2 weeks of IV antibiotic. Pt has ESBL in urine. Bedside nurse is aware name of the IV antibiotic, dosage, and frequency is required for HH.
[2024-12-28] MEDS: PANTOPRAZOLE 40 MG TABLET PO (16:00)
[2024-12-28] MEDS: CYCLObenzaPRINE 5 MG TABLET PO (20:36)
[2024-12-29] VITALS (8 sets, daily range): BP systolic 118–156; BP diastolic 76–95; PULSE 68–88; RESP 14–19; TEMP 36.1–37.1; O2SAT 93–97
[2024-12-29] MEDS: SODIUM CHLORIDE 0.45 % 1,000 ML 120 ML IV ×2 (01:27→10:13)
[2024-12-29] MEDS: PIPER/TAZO 3.375 GM PREMIX 3.375 GM/50 ML BAG IV ×2 (05:16→17:11)
[2024-12-29 06:14] LABS: Basophils # (Auto) 0.1 Thou/mm3 (0.0-0.2); Basophils % (Auto) 1 % (0-2.5); Eosinophils # (Auto) 0.1 Thou/mm3 (0.0-0.5); Eosinophils % (Auto) 3 % (0-10); Hematocrit 32.3 % (36.0-46.0); Hemoglobin 10.9 g/dL (12.0-16.0); Immature Granulocytes % (Auto) 0 % (0-0); Immature Granulocytes Auto 0.01 Thou/mm3 (0.00-0.00); Lymphocytes # (Auto) 1.4 Thou/mm3 (1.0-4.8); Lymphocytes % (Auto) 32 % (10-50); Mean Corpuscular HGB Conc 33.7 g/dl (31.0-37.0); Mean Corpuscular Hemoglobin 28.5 pg (25.0-35.0); Mean Corpuscular Volume 85 fL (80-100); Monocytes # (Auto) 0.5 Thou/mm3 (0.0-0.8); Monocytes % (Auto) 11 % (0-12); Neutrophils # (Auto) 2.3 Thou/mm3 (1.8-7.7); Neutrophils % (Auto) 53 % (37-80); Nucleated Red Blood Cell % 0 /100 WBC (0); Platelet Count 268 Thou/mm3 (140-440); RDW Standard Deviation 42.1 fL (36.4-46.3); Red Blood Count 3.82 Miln/mm3 (4.00-5.20); White Blood Count 4.3 Thou/mm3 (3.6-11.0)
[2024-12-29 06:27] LABS: Alanine Aminotransferase 67 U/L (10-49); Albumin, Serum 4.1 gm/dL (3.5-5.0); Albumin/Globulin Ratio 1.6 (1.2-2.2); Alkaline Phosphatase 127 U/L (46-116); Anion Gap 10 (7-16); Aspartate Amino Transferase 37 U/L (0-34); BUN/Creatinine Ratio 17 Ratio (12-20); Bilirubin,Total 0.4 mg/dL (0.3-1.2); Blood Urea Nitrogen 10 mg/dL (9-23); Calcium 8.7 mg/dL (8.3-10.6); Calcium (Corrected) 8.7 mg/dL (8.5-10.1); Carbon Dioxide 28.1 mMol/L (20.0-31.0); Chloride 106 mMol/L (98-107); Creatinine (Component) 0.6 mg/dL (0.6-1.3); Estimated Creatinine Clearance 110.3 mL/min (>60); Globulin 2.6 gm/dL (2.3-3.5); Glucose 112 mg/dL (74-106); Magnesium 1.7 mg/dL (1.6-2.6); Osmolality,Calculated 286 (275-295); Phosphorous 2.9 mg/dL (2.4-5.1); Potassium 3.5 mMol/L (3.4-5.1); Sodium 144 mMol/L (136-145); Total Protein 6.7 gm/dL (5.7-8.2); eGFR > 60 See Note
[2024-12-29] MEDS: HEPARIN SOD INJ 5000 UNIT/ML VIAL SC ×2 (09:20→20:58)
[2024-12-29] MEDS: NITROFURANTOIN MACRO 100 MG CAPSULE PO ×2 (09:21→20:45)
[2024-12-29] MEDS: PANTOPRAZOLE 40 MG TABLET PO (09:21)
--- NOTE | 2024-12-29 09:43 | PC.NURSE ---
Dr. Vargas made aware pts amlodipine-benazepril (home med) finished. Order received, read back and carried out.
[2024-12-29 13:22] LABS: HIV (1&2) Antibody Rapid Non-Reactive
--- NOTE | 2024-12-29 13:32 | PC.NURSE ---
Dr. Vargas aware patient is taking macrobid BID, per Dr. Suero recommendations. Order given to start patient back on Zosyn. order received, read back and carried out.
--- NOTE | 2024-12-29 13:33 | PD.NEPHPROG ---
Documentation for date of: 12/29/24 Subjective Subjective Interval history: Ms. Moncada is a 59 y/o F with history of HTN, HLD, and kidney stones presents to ED with 2 weeks of non-bloody diarrhea, N/V, and back/abd pain, and fevers/chills. Patient was diagnosed with UTI start Keflex yesterday, but symptoms remain prompting ED visit. Patient reports diarrhea has resolved, however nausea and vomiting, dysuria, fever and chills are present. Patient denies chest pain or shortness of breath. ED COURSE: Labs significant for: Lactic acid 2.1 down to 0.7. Pro-Chidi negative. Urinalysis showed 40 WBC, 38 RBC, 2+ protein, no bacteria. Imaging significant for: CT abdomen/pelvis showing left-sided pyelonephritis. Patient started on Zosyn. Given 2.5 L IV bolus. Patient seen and examined at bedside, resting comfortably. Patient reports significant improvement in symptoms with IV Zosyn. 12/27/2024: Patient seen examined at bedside, notably uncomfortable. Patient complains of fevers overnight and significant headache. Patient is also having difficult bowel movements despite stool softeners. WBC 5.3, hemoglobin 10.8, sodium 140, potassium 3.4, bicarb 25.1, BUN 6, creatinine 0.6, EGFR greater than 60. Albumin decreased from 4.6-4.1. Ordered replacement potassium, started Flexeril for back pain and headaches, give times of magnesium citrate, and x 1 Imitrex. Will continue IV antibiotics. Urine culture positive for gram-negative rods, blood cultures negative x 24 hours. 12/28/2024 patient currently seen in medical floor. Daughter at bedside. Complaining of headaches. Yesterday I gave her cyclobenzaprine and Imitrex and the headaches much better. Reduced amount of morphine given. Patient has ESBL E. coli in the urine cultures. Blood cultures negative. Dr. Suero was consulted. Sensitive to Zosyn-currently on. 12/29/2024 patient currently seen in medical floor. Daughter [place] at bedside. Noted Dr. Suero ordered Macrobid. Patient had a fever of 104. Blood cultures negative. Urine culture so far growing ESBL E. coli. Will continue with Zosyn and by Tuesday we will discharge her on p.o. nitrofurantoin. Review of Systems Review of Systems Narrative Review of Systems: CONSTITUTIONAL: Fever seems to be better HEENT: Denies any visual disturbances or hearing problems. CARDIOVASCULAR: Patient denies any chest pain, shortness of breath, swelling in the lower extremities. PULMONARY: Patient denies any shortness of breath, cough. GASTROINTESTINAL: Patient denies any abdominal pain, constipation, nausea, vomiting, diarrhea. GENITOURINARY: Patient denies any urinary symptoms of burning or frequency or hematuria, denies any form in the urine. SKIN: Denies any rash. MUSCULOSKELETAL: Denies any muscular skeletal problems of joint pains. NEUROLOGICAL: Denies any neurological problems of strokes, seizures or confusion. Denies any memory problems. Headaches better PSYCHIATRIC: Denies any depression or anxiety. LYMPHATICS : No lymphadenopathy Exam Vital Signs Temp Pulse Resp BP Pulse Ox O2 Del Method 36.2 C 68 18 129/77 97 Room Air 12/29/24 12:00 12/29/24 12:00 12/29/24 12:00 12/29/24 12:00 12/29/24 12:00 12/29/24 12:00 Narrative Exam GENERAL APPEARANCE: Patient seems to be comfortable, adequately hydrated and nourished. HEENT: EOMI, PERRLA NECK: Neck supple, no JVD or bruit CARDIOVASCULAR: Heart regular, no murmurs LUNGS/CHEST: Chest clear to auscultation. No rales, rhonchi, wheezing ABDOMEN: Soft, nontender, nondistended. No masses. Normal bowel sounds. EXTREMITIES: No edema, clubbing or cyanosis. SKIN: Skin exam normal without any rashes MUSCULOSKELETAL: Musculoskeletal exam normal PSYCHIATRIC: Normal mood, affect LYMPHATICS: No lymphadenopathy noted NEUROLOGICAL : No neurological deficits Objective Labs 12/29/24 04:44 12/29/24 04:44 Labs: Laboratory Results - last 24 hr 12/29/24 04:44 WBC 4.3 RBC 3.82 L Hgb 10.9 L Hct 32.3 L MCV 85 MCH 28.5 MCHC 33.7 RDW Std Deviation 42.1 Plt Count 268 D Neut % (Auto) 53 Lymph % (Auto) 32 [place] % (Auto) 11 Eos % (Auto) 3 Baso % (Auto) 1 Neut # (Auto) 2.3 Lymph # (Auto) 1.4 [place] # (Auto) 0.5 Eos # (Auto) 0.1 Baso # (Auto) 0.1 Immature Gran # (Auto) 0.01 H Absolute Nucleated RBC 0.00 Immature Gran % 0 Nucleated RBC % 0 Sodium 144 Potassium 3.5 Chloride 106 Carbon Dioxide 28.1 Anion Gap 10 BUN 10 Creatinine 0.6 Estim Creat Clear Calc 110.3 eGFR > 60 BUN/Creatinine Ratio 17 Glucose 112 H Calculated Osmolality 286 Calcium 8.7 Corrected Calcium 8.7 Phosphorus 2.9 Magnesium 1.7 Total Bilirubin 0.4 AST 37 H ALT 67 H Alkaline Phosphatase 127 H Total Protein 6.7 Albumin 4.1 Globulin 2.6 Albumin/Globulin Ratio 1.6 HIV 1&2 Antibody Rapid Non-Reactive Assessment & Plan Additional Assessment & Plan Additional Plan: 59 y/o F with history of HTN, HLD, and kidney stones presents to ED with 2 weeks of non-bloody diarrhea, N/V, and back/abd pain, and fevers/chills, negative for pyelonephritis. #Pyelonephritis Patient presented with complaint of fever, chills, nausea, vomiting, CVA tenderness noted on initial exam. Plan nephritis confirmed with CT imaging. Patient started on Zosyn, received 2.5 L bolus in the ED. Patient with significant symptomatic improvement since admission. Lactic acid 2.1 down to 0.7, Pro-Chidi negative, WBC 11. Patient complaining of fevers overnight along with chills, body aches, headaches. Morphine was given for body aches, some improvement. Urine culture positive for ESBL E. coli. Blood cultures negative x 24 hours. - Zosyn 3.375 g IV every 6 hours - dc Normal saline 120 mL/h - Blood cultures negative, urine cultures positive for ESBL - Morphine 1 mg IV every 4 hours as needed - Flexeril 5 mg twice daily - Dr. Suero was consulted-recommended p.o. Macrobid. Will continue Zosyn until Tuesday and discharge her on p.o. Macrobid. Repeat urine cultures ordered # Elevated LFTs most likely related to antibiotics. CT abdomen on admission was negative. Will monitor closely. Held statin #HTN #HLD Patient has history as stated. - Resume home medication: Amlodipine?benazepril DVT prophylaxis: Heparin GI prophylaxis: None Diet: Regular Lines: Peripheral IV Code status: Full code
[2024-12-29] MEDS: AMLODIPINE-BENAZEPRIL 5-20 MG PO (16:48)
[2024-12-29] MEDS: CYCLObenzaPRINE 5 MG TABLET PO (20:45)
[2024-12-30] VITALS (8 sets, daily range): BP systolic 105–136; BP diastolic 57–78; PULSE 60–93; RESP 16–19; TEMP 36.1–36.3; O2SAT 96–97
[2024-12-30] MEDS: PIPER/TAZO 3.375 GM PREMIX 3.375 GM/50 ML BAG IV ×5 (00:22→23:54)
[2024-12-30 05:58] LABS: Basophils % (Auto) 1 % (0-2.5); Eosinophils # (Auto) 0.2 Thou/mm3 (0.0-0.5); Eosinophils % (Auto) 4 % (0-10); Hemoglobin 11.1 g/dL (12.0-16.0); Immature Granulocytes % (Auto) 1 % (0-0); Immature Granulocytes Auto 0.02 Thou/mm3 (0.00-0.00); Lymphocytes # (Auto) 1.4 Thou/mm3 (1.0-4.8); Lymphocytes % (Auto) 33 % (10-50); Mean Corpuscular HGB Conc 33.6 g/dl (31.0-37.0); Mean Corpuscular Hemoglobin 28.2 pg (25.0-35.0); Mean Corpuscular Volume 84 fL (80-100); Monocytes # (Auto) 0.3 Thou/mm3 (0.0-0.8); Monocytes % (Auto) 8 % (0-12); Neutrophils # (Auto) 2.3 Thou/mm3 (1.8-7.7); Neutrophils % (Auto) 54 % (37-80); Nucleated Red Blood Cell % 0 /100 WBC (0); Platelet Count 293 Thou/mm3 (140-440); RDW Standard Deviation 42.1 fL (36.4-46.3); Red Blood Count 3.93 Miln/mm3 (4.00-5.20); White Blood Count 4.2 Thou/mm3 (3.6-11.0)
[2024-12-30 06:25] LABS: Alanine Aminotransferase 55 U/L (10-49); Albumin, Serum 4.4 gm/dL (3.5-5.0); Albumin/Globulin Ratio 1.6 (1.2-2.2); Alkaline Phosphatase 129 U/L (46-116); Anion Gap 11 (7-16); Aspartate Amino Transferase 25 U/L (0-34); BUN/Creatinine Ratio 17 Ratio (12-20); Bilirubin,Total 0.3 mg/dL (0.3-1.2); Blood Urea Nitrogen 12 mg/dL (9-23); Calcium 9.3 mg/dL (8.3-10.6); Calcium (Corrected) 9.3 mg/dL (8.5-10.1); Carbon Dioxide 28.2 mMol/L (20.0-31.0); Chloride 105 mMol/L (98-107); Creatinine (Component) 0.7 mg/dL (0.6-1.3); Estimated Creatinine Clearance 93.3 mL/min (>60); Globulin 2.8 gm/dL (2.3-3.5); Glucose 115 mg/dL (74-106); Osmolality,Calculated 287 (275-295); Potassium 3.7 mMol/L (3.4-5.1); Sodium 144 mMol/L (136-145); Total Protein 7.2 gm/dL (5.7-8.2); eGFR > 60 See Note
--- NOTE | 2024-12-30 09:49 | ESPR_ITS ---
Documentation for date of: 12/30/24 Subjective Subjective Interval history: Ms. Moncada is a 59 y/o F with history of HTN, HLD, and kidney stones presents to ED with 2 weeks of non-bloody diarrhea, N/V, and back/abd pain, and fevers/chills. Patient was diagnosed with UTI start Keflex yesterday, but symptoms remain prompting ED visit. Patient reports diarrhea has resolved, however nausea and vomiting, dysuria, fever and chills are present. Patient denies chest pain or shortness of breath. ED COURSE: Labs significant for: Lactic acid 2.1 down to 0.7. Pro-Chidi negative. Urinalysis showed 40 WBC, 38 RBC, 2+ protein, no bacteria. Imaging significant for: CT abdomen/pelvis showing left-sided pyelonephritis. Patient started on Zosyn. Given 2.5 L IV bolus. Patient seen and examined at bedside, resting comfortably. Patient reports significant improvement in symptoms with IV Zosyn. 12/27/2024: Patient seen examined at bedside, notably uncomfortable. Patient complains of fevers overnight and significant headache. Patient is also having difficult bowel movements despite stool softeners. WBC 5.3, hemoglobin 10.8, sodium 140, potassium 3.4, bicarb 25.1, BUN 6, creatinine 0.6, EGFR greater than 60. Albumin decreased from 4.6-4.1. Ordered replacement potassium, started Flexeril for back pain and headaches, give times of magnesium citrate, and x 1 Imitrex. Will continue IV antibiotics. Urine culture positive for gram- negative rods, blood cultures negative x 24 hours. 12/28/2024 patient currently seen in medical floor. Daughter at bedside. Complaining of headaches. Yesterday I gave her cyclobenzaprine and Imitrex and the headaches much better. Reduced amount of morphine given. Patient has ESBL E. coli in the urine cultures. Blood cultures negative. Dr. Suero was consulted. Sensitive to Zosyn-currently on. 12/30/2024 patient currently seen in medical floor. Noted Dr. Suero ordered Macrobid. No further fevers. Blood cultures negative. Urine culture so far growing ESBL E. coli. Repeat urine culture pending. Will continue with Zosyn and by Tuesday we will discharge her on p.o. nitrofurantoin. Review of Systems Review of Systems Narrative Review of Systems: CONSTITUTIONAL: Denies any fever or chills. Complaining of fatigue. HEENT: Denies any visual disturbances or hearing problems. CARDIOVASCULAR: Patient denies any chest pain, shortness of breath, swelling in the lower extremities. PULMONARY: Patient denies any shortness of breath, cough. GASTROINTESTINAL: Patient denies any abdominal pain, constipation, nausea, vomiting, diarrhea. GENITOURINARY: Patient denies any urinary symptoms of burning or frequency or hematuria, denies any form in the urine. SKIN: Denies any rash. MUSCULOSKELETAL: Denies any muscular skeletal problems of joint pains. NEUROLOGICAL: Denies any neurological problems of strokes, seizures or confusion. Denies any memory problems. Headaches better PSYCHIATRIC: Denies any depression or anxiety. LYMPHATICS : No lymphadenopathy Exam Vital Signs Temp Pulse Resp BP Pulse Ox O2 Del Method 36.1 C 65 16 105/57 L 96 Room Air 12/30/24 08:00 12/30/24 08:00 12/30/24 08:00 12/30/24 08:00 12/30/24 08:00 12/30/24 08:00 Narrative Exam GENERAL APPEARANCE: Patient seems to be comfortable, adequately hydrated and nourished. HEENT: EOMI, PERRLA NECK: Neck supple, no JVD or bruit CARDIOVASCULAR: Heart regular, no murmurs LUNGS/CHEST: Chest clear to auscultation. No rales, rhonchi, wheezing ABDOMEN: Soft, nontender, nondistended. No masses. Normal bowel sounds. EXTREMITIES: No edema, clubbing or cyanosis. SKIN: Skin exam normal without any rashes MUSCULOSKELETAL: Musculoskeletal exam normal PSYCHIATRIC: Normal mood, affect LYMPHATICS: No lymphadenopathy noted NEUROLOGICAL : No neurological deficits Objective Labs 12/30/24 05:22 12/30/24 05:22 Labs: Laboratory Results - last 24 hr 12/29/24 12/30/24 04:44 05:22 WBC 4.2 RBC 3.93 L Hgb 11.1 L Hct 33.0 L MCV 84 MCH 28.2 MCHC 33.6 RDW Std Deviation 42.1 Plt Count 293 Neut % (Auto) 54 Lymph % (Auto) 33 [place] % (Auto) 8 Eos % (Auto) 4 Baso % (Auto) 1 Neut # (Auto) 2.3 Lymph # (Auto) 1.4 [place] # (Auto) 0.3 Eos # (Auto) 0.2 Baso # (Auto) 0.0 Immature Gran # (Auto) 0.02 H Absolute Nucleated RBC 0.00 Immature Gran % 1 H Nucleated RBC % 0 Sodium 144 Potassium 3.7 Chloride 105 Carbon Dioxide 28.2 Anion Gap 11 BUN 12 Creatinine 0.7 Estim Creat Clear Calc 93.3 eGFR > 60 BUN/Creatinine Ratio 17 Glucose 115 H Calculated Osmolality 287 Calcium 9.3 Corrected Calcium 9.3 Total Bilirubin 0.3 AST 25 ALT 55 H Alkaline Phosphatase 129 H Total Protein 7.2 Albumin 4.4 Globulin 2.8 Albumin/Globulin Ratio 1.6 HIV 1&2 Antibody Rapid Non-Reactive Assessment & Plan Additional Assessment & Plan Additional Plan: 59 y/o F with history of HTN, HLD, and kidney stones presents to ED with 2 weeks of non-bloody diarrhea, N/V, and back/abd pain, and fevers/chills, negative for pyelonephritis. #Pyelonephritis Patient presented with complaint of fever, chills, nausea, vomiting, CVA tenderness noted on initial exam. Plan nephritis confirmed with CT imaging. Patient started on Zosyn, received 2.5 L bolus in the ED. Patient with significant symptomatic improvement since admission. Lactic acid 2.1 down to 0.7, Pro-Chidi negative, WBC 11. Patient complaining of fevers overnight along with chills, body aches, headaches. Morphine was given for body aches, some improvement. Urine culture positive for ESBL E. coli. Blood cultures negative x 24 hours. - Zosyn 3.375 g IV every 6 hours - dc Normal saline 120 mL/h - Blood cultures negative, urine cultures positive for ESBL - Morphine 1 mg IV every 4 hours as needed - Flexeril 5 mg twice daily - Dr. Suero was consulted-recommended p.o. Macrobid. Will continue Zosyn until Tuesday and discharge her on p.o. Macrobid. Repeat urine cultures ordered # Elevated LFTs most likely related to antibiotics. CT abdomen on admission was negative. Will monitor closely. Held statin #HTN #HLD Patient has history as stated. - Resume home medication: Amlodipine?benazepril DVT prophylaxis: Heparin GI prophylaxis: None Diet: Regular Lines: Peripheral IV Code status: Full code
[2024-12-30] MEDS: HEPARIN SOD INJ 5000 UNIT/ML VIAL SC ×2 (10:38→20:38)
[2024-12-30] MEDS: NITROFURANTOIN MACRO 100 MG CAPSULE PO ×2 (10:39→20:38)
[2024-12-30] MEDS: AMLODIPINE-BENAZEPRIL 5-20 MG PO (10:39)
[2024-12-30] MEDS: PANTOPRAZOLE 40 MG TABLET PO (10:39)
[2024-12-30] MEDS: CYCLObenzaPRINE 5 MG TABLET PO (20:38)
[2024-12-31] VITALS: BP 108/56; PULSE 66; PULSE 70; RESP 16; TEMP 36.9; O2SAT 99
[2024-12-31 04:00] VITALS: BP 92/54; PULSE 60; PULSE 87; RESP 15; TEMP 36.2; O2SAT 96
[2024-12-31] MEDS: PIPER/TAZO 3.375 GM PREMIX 3.375 GM/50 ML BAG IV (05:23)
[2024-12-31 06:00] VITALS: BMI 38.5
[2024-12-31 06:27] LABS: Basophils % (Auto) 1 % (0-2.5); Eosinophils # (Auto) 0.2 Thou/mm3 (0.0-0.5); Eosinophils % (Auto) 5 % (0-10); Hematocrit 34.3 % (36.0-46.0); Hemoglobin 11.3 g/dL (12.0-16.0); Immature Granulocytes % (Auto) 1 % (0-0); Immature Granulocytes Auto 0.02 Thou/mm3 (0.00-0.00); Lymphocytes # (Auto) 1.6 Thou/mm3 (1.0-4.8); Lymphocytes % (Auto) 39 % (10-50); Mean Corpuscular HGB Conc 32.9 g/dl (31.0-37.0); Mean Corpuscular Hemoglobin 28.3 pg (25.0-35.0); Mean Corpuscular Volume 86 fL (80-100); Monocytes # (Auto) 0.3 Thou/mm3 (0.0-0.8); Monocytes % (Auto) 8 % (0-12); Neutrophils # (Auto) 1.9 Thou/mm3 (1.8-7.7); Neutrophils % (Auto) 47 % (37-80); Nucleated Red Blood Cell % 0 /100 WBC (0); Platelet Count 257 Thou/mm3 (140-440); RDW Standard Deviation 43.6 fL (36.4-46.3)
[2024-12-31 06:43] LABS: Alanine Aminotransferase 51 U/L (10-49); Albumin, Serum 4.6 gm/dL (3.5-5.0); Albumin/Globulin Ratio 1.8 (1.2-2.2); Alkaline Phosphatase 138 U/L (46-116); Anion Gap 12 (7-16); Aspartate Amino Transferase 26 U/L (0-34); BUN/Creatinine Ratio 20 Ratio (12-20); Bilirubin,Total 0.3 mg/dL (0.3-1.2); Blood Urea Nitrogen 12 mg/dL (9-23); Calcium 9.5 mg/dL (8.3-10.6); Calcium (Corrected) 9.5 mg/dL (8.5-10.1); Carbon Dioxide 25.7 mMol/L (20.0-31.0); Chloride 105 mMol/L (98-107); Creatinine (Component) 0.6 mg/dL (0.6-1.3); Estimated Creatinine Clearance 108.8 mL/min (>60); Globulin 2.5 gm/dL (2.3-3.5); Glucose 111 mg/dL (74-106); Osmolality,Calculated 285 (275-295); Potassium 3.8 mMol/L (3.4-5.1); Sodium 143 mMol/L (136-145); Total Protein 7.1 gm/dL (5.7-8.2); eGFR > 60 See Note
[2024-12-31 08:00] VITALS: BP 121/68; PULSE 68; PULSE 70; RESP 15; TEMP 36.8; O2SAT 97
[2024-12-31] MEDS: NITROFURANTOIN MACRO 100 MG CAPSULE PO (09:02)
[2024-12-31] MEDS: PANTOPRAZOLE 40 MG TABLET PO (09:02)
[2024-12-31] MEDS: AMLODIPINE-BENAZEPRIL 5-20 MG PO (09:02)
[2024-12-31] MEDS: HEPARIN SOD INJ 5000 UNIT/ML VIAL SC (09:03)
--- NOTE | 2024-12-31 11:45 | ESDS_ITS ---
Planned Discharge Date 12/31/24 DS: Providers Provider Date of admission: 12/25/24 22:49 Primary care physician: Yung Vargas MD Admitting Provider: Yung Vargas MD Attending Provider on Admission: Yung Vargas MD Consults: 12/28/24 07:31 Consult to Infectious Diseases Routine Comment: ESBL E . Coli Consulting Provider: Jayesh Suero Attending Provider on DC: Yung Vargas MD Discharging Provider: Yung Vargas MD Discharge Diagnosis Discharge Diagnosis (1) Acute pyelonephritis: Status: Acute Assessment & Plan: 59 y/o F with history of HTN, HLD, and kidney stones presents to ED with 2 weeks of non-bloody diarrhea, N/V, and back/abd pain, and fevers/chills, negative for pyelonephritis. #Pyelonephritis Urine cultures positive for E. coli ESBL. Repeat urine cultures pending. - Dr. Suero was consulted-recommended p.o. Macrobid. Completed 6 days of Zosyn. Will discharge her on p.o. Macrobid. # Elevated LFTs most likely related to antibiotics. CT abdomen on admission was negative. Will monitor closely. Held statin-LFTs improving #HTN #HLD Patient has history as stated. - Resume home medication: Amlodipine?benazepril Problem List Completed Was Problem List Reviewed/Reconciled?: Yes Hospital Course Hospital Course Hospital course: Ms. Moncada is a 59 y/o F with history of HTN, HLD, and kidney stones presents to ED with 2 weeks of non-bloody diarrhea, N/V, and back/abd pain, and fevers/chills. Patient was diagnosed with UTI start Keflex yesterday, but symptoms remain prompting ED visit. Patient reports diarrhea has resolved, however nausea and vomiting, dysuria, fever and chills are present. Patient denies chest pain or shortness of breath. ED COURSE: Labs significant for: Lactic acid 2.1 down to 0.7. Pro-Chidi negative. Urinalysis showed 40 WBC, 38 RBC, 2+ protein, no bacteria. Imaging significant for: CT abdomen/pelvis showing left-sided pyelonephritis. Patient started on Zosyn. Given 2.5 L IV bolus. Patient seen and examined at bedside, resting comfortably. Patient reports significant improvement in symptoms with IV Zosyn. 12/27/2024: Patient seen examined at bedside, notably uncomfortable. Patient complains of fevers overnight and significant headache. Patient is also having difficult bowel movements despite stool softeners. WBC 5.3, hemoglobin 10.8, sodium 140, potassium 3.4, bicarb 25.1, BUN 6, creatinine 0.6, EGFR greater than 60. Albumin decreased from 4.6-4.1. Ordered replacement potassium, started Flexeril for back pain and headaches, give times of magnesium citrate, and x 1 Imitrex. Will continue IV antibiotics. Urine culture positive for gram- negative rods, blood cultures negative x 24 hours. 12/28/2024 patient currently seen in medical floor. Daughter at bedside. Complaining of headaches. Yesterday I gave her cyclobenzaprine and Imitrex and the headaches much better. Reduced amount of morphine given. Patient has ESBL E. coli in the urine cultures. Blood cultures negative. Dr. Suero was consulted. Sensitive to Zosyn-currently on. 12/30/2024 patient currently seen in medical floor. Noted Dr. Suero ordered Macrobid. No further fevers. Blood cultures negative. Urine culture so far growing ESBL E. coli. Repeat urine culture pending. Will continue with Zosyn and by Tuesday we will discharge her on p.o. nitrofurantoin. 12/31/2024 patient currently is in medical floor. Repeat urine cultures pending. However original urine cultures positive for ESBL E. coli-sensitive to p.o. Macrobid. Dr. Suero recommended the same. Patient will be discharged today on p.o. Macrobid for 7 days. Status at Discharge Cognitive/behavioral status at discharge: Stable Functional status at discharge: independent ambulation Overall status at discharge: patient is back to baseline Time Spent with Patient Time attestation: Total time spent providing and/or coordinating discharge services: 35 minutes Exam Vital Signs Temp Pulse Resp BP Pulse Ox O2 Del Method 36.8 C 70 15 121/68 97 Room Air 12/31/24 08:00 12/31/24 08:00 12/31/24 08:00 12/31/24 08:00 12/31/24 08:00 12/31/24 08:00 Narrative Exam GENERAL APPEARANCE: Patient seems to be comfortable, adequately hydrated and nourished. HEENT: EOMI, PERRLA NECK: Neck supple, no JVD or bruit CARDIOVASCULAR: Heart regular, no murmurs LUNGS/CHEST: Chest clear to auscultation. No rales, rhonchi, wheezing ABDOMEN: Soft, nontender, nondistended. No masses. Normal bowel sounds. EXTREMITIES: No edema, clubbing or cyanosis. SKIN: Skin exam normal without any rashes MUSCULOSKELETAL: Musculoskeletal exam normal PSYCHIATRIC: Normal mood, affect LYMPHATICS: No lymphadenopathy noted NEUROLOGICAL : No neurological deficits Discharge Plan Plan Patient Disposition: HOME (Self Care) Prescriptions/Referrals Prescriptions/Med Rec: New nitrofurantoin monohyd/m-cryst 100 mg Capsule 100 mg PO BID Qty: 14 0RF Continued omeprazole 40 mg capsule,delayed release(DR/EC) 40 mg PO QDAY ondansetron 4 mg tablet,disintegrating 4 mg PO Q8H PRN (Reason: nausea and vomiting) Qty: 10 0RF amlodipine-benazepril 5-20 mg capsule 1 cap PO DAILY Patient Comments: TAKE 1 CAPSULE BY MOUTH EVERY DAY baclofen 10 mg tablet 10 mg PO PRN PRN (Reason: Pain) Patient Comments: TAKE 1 TABLET BY MOUTH EVERY DAY NEEDED Discontinued ibuprofen 600 mg tablet 600 mg PO Q8H PRN (Reason: pain) Qty: 14 0RF simvastatin 20 mg tablet 20 mg PO HS Patient Comments: TAKE 1 TABLET BY MOUTH EVERYDAY AT BEDTIME Referrals: Yung Vargas MD [Primary Care Provider] - Patient/Caregiver Discharge Instructions Discharge Activity: activity as tolerated and return to work once clear Education Materials: Infec ESBL, Urinary Tract Infections in Women Print Language: Ecuadorean Activity Restrictions/Additional Instructions: Follow-up with Dr. Vargas in 1 week Stand Alone Forms: Claudia Award Info., Patient Portal Info Letter Discharge Order Discharge Orders: Discharge (Routine); Ordered 12/31/24 Ordered By: Yung Vargas
[2024-12-31 12:00] VITALS: BP 109/66; PULSE 65; PULSE 70; RESP 19; TEMP 36.4; O2SAT 98
[2025-01-01] LABS: Hepatitis C Antibody Non Reactive (Non React)
== END 2024-12-31 12:34 | disposition home or self-care (01) | DRG 690 ==
LOC: SERX 20:32 → SERHOLD 23:37 → S2SX 12-26 06:13 → S3NX 12-26 06:13
PROVIDERS: Internal Medicine Infectious Disease; Physician Assistant; Admitting Provider Internal Medicine; Emergency Provider Emergency Medicine; PCP Internal Medicine; Visit Provider Internal Medicine
DX: N10 Acute pyelonephritis (principal); Z16.12 Extended spectrum beta lactamase (ESBL) resistance; I10 Essential (primary) hypertension; E78.5 Hyperlipidemia, unspecified; Z87.442 Personal history of urinary calculi; R79.89 Other specified abnormal findings of blood chemistry; R00.0 Tachycardia, unspecified; Z90.710 Acquired absence of both cervix and uterus; Z90.49 Acquired absence of other specified parts of digestive tract; Z87.891 Personal history of nicotine dependence; B96.20 Unspecified Escherichia coli [E. coli] as the cause of diseases classified elsewhere
CPT/HCPCS: 36415; 71045; 74177; 80053; 80307; 81001; 83605; 83690; 83735; 84100; 84145; 84484; 85025; 85610; 85730; 86703; 86803; 87040; 87077; 87086; 87186; 87400; 87811; 93005; 93225; 96361; 96365; 96367; 96374; 96375; 99285; A4649; J0696; J1644; J1885; J2270; J2405; J2543; J3010; J7030; Q9967; A9270

== ENCOUNTER → 2025-01-14 | Outpatient (CLI) | payer BC, SELFPAY ==
[2025-01-14 12:23] LABS: Basophils % (Auto) 1 % (0-2.5); Eosinophils # (Auto) 0.1 Thou/mm3 (0.0-0.5); Eosinophils % (Auto) 3 % (0-10); Hematocrit 36.6 % (36.0-46.0); Hemoglobin 12.5 g/dL (12.0-16.0); Immature Granulocytes % (Auto) 0 % (0-0); Immature Granulocytes Auto 0.01 Thou/mm3 (0.00-0.00); Lymphocytes # (Auto) 1.9 Thou/mm3 (1.0-4.8); Lymphocytes % (Auto) 41 % (10-50); Mean Corpuscular HGB Conc 34.2 g/dl (31.0-37.0); Mean Corpuscular Hemoglobin 28.5 pg (25.0-35.0); Mean Corpuscular Volume 83 fL (80-100); Monocytes # (Auto) 0.3 Thou/mm3 (0.0-0.8); Monocytes % (Auto) 7 % (0-12); Neutrophils # (Auto) 2.2 Thou/mm3 (1.8-7.7); Neutrophils % (Auto) 48 % (37-80); Nucleated Red Blood Cell % 0 /100 WBC (0); Platelet Count 320 Thou/mm3 (140-440); RDW Standard Deviation 43.8 fL (36.4-46.3); Red Blood Count 4.39 Miln/mm3 (4.00-5.20); White Blood Count 4.5 Thou/mm3 (3.6-11.0)
[2025-01-14 12:28] LABS: Alanine Aminotransferase 25 U/L (10-49); Albumin, Serum 4.8 gm/dL (3.5-5.0); Albumin/Globulin Ratio 1.8 (1.2-2.2); Alkaline Phosphatase 76 U/L (46-116); Anion Gap 12 (7-16); BUN/Creatinine Ratio 30 Ratio (12-20); Bilirubin,Total 0.5 mg/dL (0.3-1.2); Blood Urea Nitrogen 18 mg/dL (9-23); Chloride 103 mMol/L (98-107); Creatinine (Component) 0.6 mg/dL (0.6-1.3); Globulin 2.6 gm/dL (2.3-3.5); Glucose 118 mg/dL (74-106); Osmolality,Calculated 280 (275-295); Sodium 139 mMol/L (136-145); Total Protein 7.4 gm/dL (5.7-8.2); eGFR > 60 See Note
[2025-01-14 12:29] LABS: Glucose Estimated Average 117 mg/dL (80-131); Hemoglobin A1C 5.7 % Hgb (4.8-6.0)
[2025-01-14 13:13] LABS: Collection Type, Urine Clean Catch
[2025-01-14 13:18] LABS: Cocci Serology, IgM Negative (Negative)
[2025-01-14 14:02] LABS: Bilirubin,Urine Negative (Negative); Blood,Urine Negative (Negative); Clarity,Urine Clear (Clear/Hazy); Color,Urine Lt-Yellow (Lt Yel-Yel); Culture Indicated,Urine Not Indicated; Glucose, Urine Negative (Negative); Ketones,Urine Negative (Negative); Leukocyte Esterase,Urine Negative (Negative); Nitrite,Urine Negative (Negative); Protein,Urine Negative (Neg - Trace); RBC,Urine 4 /hpf (0-3); Specific Gravity,Urine 1.024 (1.001-1.035); Squamous Epithelial Cell,Urine 1 /hpf (0-5); Urobilinogen,Urine Negative mg/dL (0.0-1.0); WBC,Urine 2 /hpf (0-5)
[2025-01-16 11:00] LABS: Cocci Serology, IgG Negative (Negative)
== END | disposition home or self-care (01) ==
LOC: COPL 11:08
PROVIDERS: PCP Internal Medicine; Referring Provider Internal Medicine; Visit Provider Internal Medicine
DX: E11.9 Type 2 diabetes mellitus without complications (principal); E78.5 Hyperlipidemia, unspecified; N39.0 Urinary tract infection, site not specified
CPT/HCPCS: 36415; 80053; 81001; 83036; 85025; 86331; 86635

== ENCOUNTER → 2025-04-24 | Outpatient (CLI) | payer BC, SELFPAY ==
[2025-04-24 10:57] LABS: Glucose Estimated Average 126 mg/dL (80-131); Hemoglobin A1C 6.0 % Hgb (4.8-6.0)
[2025-04-24 11:00] LABS: Alanine Aminotransferase 49 U/L (10-49); Albumin, Serum 4.9 gm/dL (3.5-5.0); Albumin/Globulin Ratio 2.0 (1.2-2.2); Alkaline Phosphatase 74 U/L (46-116); Anion Gap 9 (7-16); Aspartate Amino Transferase 34 U/L (0-34); BUN/Creatinine Ratio 16 Ratio (12-20); Bilirubin,Total 0.5 mg/dL (0.3-1.2); Blood Urea Nitrogen 11 mg/dL (9-23); Calcium 10.2 mg/dL (8.3-10.6); Calcium (Corrected) 10.2 mg/dL (8.5-10.1); Carbon Dioxide 28.7 mMol/L (20.0-31.0); Cardiac Risk Estimate 5.0 RATIO (3.7-5.6); Chloride 105 mMol/L (98-107); Cholesterol 263 mg/dL (132-200); Creatinine (Component) 0.7 mg/dL (0.6-1.3); Globulin 2.5 gm/dL (2.3-3.5); Glucose 110 mg/dL (74-106); HDL Cholesterol 53 mg/dL (40-60); LDL Cholesterol,Calculated 182 mg/dL (0-130); Osmolality,Calculated 285 (275-295); Potassium 4.7 mMol/L (3.4-5.1); Sodium 143 mMol/L (136-145); Total Protein 7.4 gm/dL (5.7-8.2); Triglycerides 141 mg/dL (30-150); eGFR > 60 See Note
== END | disposition home or self-care (01) ==
LOC: COPL 09:39
PROVIDERS: PCP Internal Medicine; Referring Provider Internal Medicine; Visit Provider Internal Medicine
DX: I10 Essential (primary) hypertension (principal); E78.5 Hyperlipidemia, unspecified
CPT/HCPCS: 36415; 80053; 80061; 83036

== ENCOUNTER → 2025-07-16 | Outpatient (CLI) | payer BC, SELFPAY ==
[2025-07-16 08:48] LABS: Collection Type, Urine Clean Catch
[2025-07-16 09:54] LABS: Bilirubin,Urine Negative (Negative); Blood,Urine Negative (Negative); Clarity,Urine Clear (Clear/Hazy); Color,Urine Colorless (Lt Yel-Yel); Culture Indicated,Urine Not Indicated; Glucose, Urine Negative (Negative); Ketones,Urine Negative (Negative); Leukocyte Esterase,Urine Negative (Negative); Nitrite,Urine Negative (Negative); PH,Urine 6.5 (5.0-7.0); Protein,Urine Negative (Neg - Trace); RBC,Urine < 1 /hpf (0-3); Specific Gravity,Urine 1.012 (1.001-1.035); Squamous Epithelial Cell,Urine < 1 /hpf (0-5); Urobilinogen,Urine Negative mg/dL (0.0-1.0); WBC,Urine < 1 /hpf (0-5)
== END | disposition home or self-care (01) ==
LOC: SLDO 08:43
PROVIDERS: Referring Provider Internal Medicine; Visit Provider Internal Medicine
DX: N39.0 Urinary tract infection, site not specified (principal)
CPT/HCPCS: 81001

== ENCOUNTER → 2025-07-22 | Outpatient (CLI) | payer BC, SELFPAY ==
[2025-07-22 08:36] LABS: Basophils # (Auto) 0.1 Thou/mm3 (0.0-0.2); Basophils % (Auto) 1 % (0-2.5); Eosinophils # (Auto) 0.1 Thou/mm3 (0.0-0.5); Eosinophils % (Auto) 3 % (0-10); Hematocrit 40.5 % (36.0-46.0); Hemoglobin 12.8 g/dL (12.0-16.0); Immature Granulocytes Auto 0.00 Thou/mm3 (0.00-0.00); Lymphocytes # (Auto) 1.9 Thou/mm3 (1.0-4.8); Lymphocytes % (Auto) 41 % (10-50); Mean Corpuscular HGB Conc 31.6 g/dl (31.0-37.0); Mean Corpuscular Hemoglobin 27.8 pg (25.0-35.0); Mean Corpuscular Volume 88 fL (80-100); Monocytes # (Auto) 0.3 Thou/mm3 (0.0-0.8); Monocytes % (Auto) 7 % (0-12); Neutrophils # (Auto) 2.2 Thou/mm3 (1.8-7.7); Neutrophils % (Auto) 49 % (37-80); Nucleated Red Blood Cell # 0.00 Thou/mm3 (0.00-0.00); Nucleated Red Blood Cell % 0 /100 WBC (0); Platelet Count 256 Thou/mm3 (140-440); RDW Standard Deviation 46.6 fL (36.4-46.3); Red Blood Count 4.61 Miln/mm3 (4.00-5.20); White Blood Count 4.6 Thou/mm3 (3.6-11.0)
[2025-07-22 09:00] LABS: Alanine Aminotransferase 22 U/L (10-49); Albumin, Serum 5.2 gm/dL (3.5-5.0); Albumin/Globulin Ratio 1.9 (1.2-2.2); Alkaline Phosphatase 80 U/L (46-116); Anion Gap 10 (7-16); Aspartate Amino Transferase 19 U/L (0-34); BUN/Creatinine Ratio 20 Ratio (12-20); Bilirubin,Total 0.4 mg/dL (0.3-1.2); Blood Urea Nitrogen 16 mg/dL (9-23); Calcium 9.9 mg/dL (8.3-10.6); Calcium (Corrected) 9.9 mg/dL (8.5-10.1); Carbon Dioxide 27.2 mMol/L (20.0-31.0); Chloride 106 mMol/L (98-107); Creatinine (Component) 0.8 mg/dL (0.6-1.3); Globulin 2.8 gm/dL (2.3-3.5); Glucose 116 mg/dL (74-106); Osmolality,Calculated 287 (275-295); Potassium 5.3 mMol/L (3.4-5.1); Sodium 143 mMol/L (136-145); Total Protein 8.0 gm/dL (5.7-8.2); eGFR > 60 See Note
[2025-07-22 09:10] LABS: Glucose Estimated Average 134 mg/dL (80-131); Hemoglobin A1C 6.3 % Hgb (4.8-6.0)
[2025-07-22 14:58] LABS: Cocci Serology, IgM Negative (Negative)
[2025-07-22 16:15] LABS: Collection Type, Urine Clean Catch
[2025-07-22 16:57] LABS: Bilirubin,Urine Negative (Negative); Blood,Urine Negative (Negative); Clarity,Urine Clear (Clear/Hazy); Color,Urine Colorless (Lt Yel-Yel); Culture Indicated,Urine Not Indicated; Glucose, Urine Negative (Negative); Ketones,Urine Negative (Negative); Leukocyte Esterase,Urine Negative (Negative); Nitrite,Urine Negative (Negative); PH,Urine 6.5 (5.0-7.0); Protein,Urine Negative (Neg - Trace); RBC,Urine < 1 /hpf (0-3); Specific Gravity,Urine 1.008 (1.001-1.035); Squamous Epithelial Cell,Urine < 1 /hpf (0-5); Urobilinogen,Urine Negative mg/dL (0.0-1.0); WBC,Urine 1 /hpf (0-5)
[2025-07-23 11:57] LABS: Cocci Serology, IgG Negative (Negative)
== END | disposition home or self-care (01) ==
PROVIDERS: PCP Internal Medicine; Referring Provider Internal Medicine; Visit Provider Internal Medicine
DX: N39.0 Urinary tract infection, site not specified (principal); R73.03 Prediabetes; I10 Essential (primary) hypertension; E78.5 Hyperlipidemia, unspecified
CPT/HCPCS: 36415; 80053; 81001; 83036; 85025; 86331; 86635